=== PATIENT | male | born 1940 | race Caucasian/White ===

== ENCOUNTER 2024-04-22 12:52 | Inpatient (IN) | payer OTHER ==
[~2024-04-22] VITALS: Ht 185.4 cm; Wt 82.6 kg
[~2024-04-22 12:52] MED LIST: ASPI325T6 PO; CARBDRO EACHEYE; FINA5TAB4 PO; FURO1TAB31 PO; LEVO25TA6 PO; LISI-275 PO; MET25T PO; PAR20T PO; PARO10TA93 PO; POTA-220 PO; SIMV40TA18 PO; TAMS0.4C39 PO
--- NOTE | 2024-04-22 13:08 | ED.PDOC ---
HPI Comments 83 year old male JOSE presents to the ED with chief complaint of syncope. Patient reports that he had been in his garage this morning when all of a sudden he had lost consciousness, waking up on the floor next to his car. EMS relays that the patient does not remember how he had fell on the ground, but denies any pain at this time, only feeling generally unwell. Patient states he is currently on ASA at this time. Patient denies any headache, back pain, extremity pain, dizziness, chest pain, or SOB. Time Seen by MD: 13:03 Primary Care Provider: CRISELDA Reviewed Notes: Nurses Notes, Gas [employer] Pet[employer] Operator Notes, Medications, Allergies Allergies: Coded Allergies: NO KNOWN ALLERGIES (Unverified , 08/22/17) Home Meds Active Scripts Potassium Chloride (Klor-Con M20) 20 Meq Tab, 20 MEQ PO BID, #60 TAB Prov:MARJORIE GAUTAM MD 09/04/17 Furosemide (Lasix) 40 Mg Tab, 40 MG PO DAILY, #30 TAB Prov:MARJORIE GAUTAM MD 09/04/17 Metoprolol Tartrate (Lopressor) 25 Mg Tb, 25 MG PO BID, #60 Prov:MARJORIE GAUTAM MD 09/04/17 Lisinopril (Lisinopril) 5 Mg Tab, 5 MG PO DAILY, #30 TAB Prov:MARJORIE GAUTAM MD 09/04/17 Reported Medications Carboxymethylcellulose-Glyceri (Clear Eyes For Dry Eyes) Dry Eyes Panchito, 1 EYES EACHEYE Q4HR, PANCHITO 08/29/17 Finasteride (Finasteride) 5 Mg Tab, 5 MG PO DAILY for 30 Days, MG 08/24/17 Tamsulosin Hcl (Tamsulosin Hcl) 0.4 Mg Cap, 1 CAP PO DAILY, #30 CAP 5 Refills 08/24/17 Aspirin (Aspirin) 325 Mg Tab, 81 MG PO DAILY for 30 Days, MG 08/24/17 Paroxetine (PAXIL TABLET) 20 Mg Tb, 1 TAB PO DAILY, #90 TAB 3 Refills 08/24/17 Simvastatin (Simvastatin) 40 Mg Tab, 40 MG PO DAILY, TAB 08/24/17 Information Source: Patient, Emergency Med Personnel Mode of Arrival: EMS Severity: Moderate Timing: Hours Duration: Since onset Prehospital treatment: None Onset: At Rest Cardiac Risk Factors: Hyperlipidemia, HTN PE Risk Factors: None History of: Aortic Disease Associated Signs and Symptoms: Syncope Past Medical History PAST MEDICAL HISTORY: High Lipids, HTN Surgical History: CABG Family History Family History: No family hx of HTN Social History Smoker: Non-Smoker Alcohol: Denies ETOH Use Drugs: Denies Drug Use Lives In: Home Constitutional: denies: chills, diaphoresis, fatigue, fever, malaise, sweats, weakness, others EENTM: denies: blurred vision, double vision, ear bleeding, ear discharge, ear drainage, ear pain, ear ringing, eye pain, eye redness, hearing loss, mouth pain, mouth swelling, nasal discharge, nose bleeding, nose congestion, nose pain, photophobia, tearing, throat pain, throat swelling, voice changes, others Respiratory: denies: cough, hemoptysis, orthopnea, SOB at rest, shortness of breath, SOB with excertion, stridor, wheezing, others Cardiovascular: reports: syncope; denies: chest pain, dizzy spells, diaphoresis, Dyspnea on exertion, edema, irregular heart beat, left arm pain, lightheadedness, palpitations, PND, others Gastrointestinal: denies: abdomen distended, abdominal pain, blood streaked bowels, constipated, diarrhea, dysphagia, difficulty swallowing, hematemesis, melena, nausea, poor appetite, poor fluid intake, rectal bleeding, rectal pain, vomiting, others Genitourinary: denies: burning, dysuria, flank pain, frequency, hematuria, incontinence, penile discharge, penile sore, pain, testicle pain, testicle swelling, urgency, others Neurological: denies: dizziness, fainting, headache, left sided numbness, left sided weakness, numbness, paresthesia, pre-existing deficit, right sided numbness, right sided weakness, seizure, speech problems, tingling, tremors, weakness, others Musculoskeletal: denies: back pain, gout, joint pain, joint swelling, muscle pain, muscle stiffness, neck pain, others Integumetry: denies: bruises, change in color, change in hair/nails, dryness, laceration, lesions, lumps, rash, wounds, others Allergic/Immunocompromised: denies: Difficulty Healing, Frequent Infections, Hives, Itching, others Hematologic/Lymphatic: denies: anemia, blood clots, easy bleeding, easy bruising, swollen glands, others Endocrine: denies: excessive hunger, excessive sweating, excessive thirst, excessive urination, flushing, intolerance to cold, intolerance to heat, unexplained weight gain, unexplained weight loss, others Psychiatric: denies: anxiety, bipolar disorder, depression, hopeless, panic disorder, schizophrenia, sleepless, suicidal, others All Other Systems: Reviewed and Negative Physical Exam General Appearance: Moderate Distress, Normal HEENT: Normal ENT Inspection, PERRL/EOMI Neck: Full Range of Motion, Non-Tender, Normal, Normal Inspection Respiratory: Chest Non-Tender, No Accessory Muscle Use, No Respiratory Distress, Normal Breath Sounds, Other (Coarse breath sounds) Cardiovascular: Irregular, No Edema, No JVD, No Murmur, No Gallop, Normal Peripheral Pulses Breast Exam: Deferred Gastrointestinal: No Organomegaly, Non Tender, No Pulsatile Mass, Normal Bowel Sounds, Soft Genitalia: Deferred Pelvic: Deferred Rectal: Deferred Extremities: No calf tenderness, Normal capillary refill, Normal inspection, Normal range of motion, Non-tender, No pedal edema Musculoskeletal : Apperance: Normal Neurologic: Alert, 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 Was a procedure done?: No CP Differential Dx Differential Diagnosis: A-fib, A-Flutter, Angina, Anxiety / Panic Attack, Atrial Dysrhythmia, Electrolyte Disorder X-Ray, Labs, Meds, VS Vital Signs Date Time Temp Pulse Resp B/P (MAP) Pulse Ox O2 Delivery O2 Flow Rate FiO2 04/22/24 12:55 57 Patient alert. Possible syncope. Had bypass surgery. Vitals stable. No sign of any trauma. EKG does show flutter. Cardiology consulted. Syncope possibly from the heart. Reviewed his history. Explained to the patient. Continue cardiac monitoring. Time of 1ST Reevaluation: 14:03 Reevaluation 1ST: Unchanged Patient Education/Counseling: Diagnosis, Treatment Family Education/Counseling: No Family Present Additional Information Previous visit documents reviewed: 08/22/17 for cholecystitis The following tests were ordered, and results were reviewed by me: Additional Information was gathered from interviewing the following independent historians: EMS I reviewed and agreed with the following test results read by other providers: I discussed treatment and results with medical personnel. Departure 1 Departure Time of Disposition: 13:12 Impression: Primary Impression: Atrial flutter Qualified Codes: I48.3 - Typical atrial flutter Additional Impression: Near syncope Disposition: ADMITTED INPATIENT Admit to: Med Surg Condition: Guarded Critical Care Note Critical Care Time?: Yes (45 min-critical care time only) Critical care comment: Atrial flutter Stability Stability form required: No Heart Score Heart Score: Heart Score Response (Comments) Value History Highly Suspicious 2 EKG Repolarization Disturb 1 Age >65 2 Risk Factors >3 or Hx ASHD 2 Troponin Normal limit 0 Total 7 I personally scribed for TESS BAI MD ([email or web address]) on 04/22/24 at 13:07. Electronically submitted by Uri Hinds ([email or web address]). TESS BAI MD Apr 22, 2024 13:07
--- NOTE | 2024-04-22 13:09 | ECG ---
[facility] Test Date: 2024-04-22 Test Time: 12:55:56 Pat Name: MICHELE MCKINLEY Department: er Room: 0223T Gender: M [employer] Operator: panda : 1940 Requested By: TESS BAI Order Number: [id number] Reading MD: Guy Sorto Measurements Intervals [place] Rate: 57 P: 0 NH: 0 QRS: 66 QRSD: 108 T: 215 QT: 421 QTc: 410 Interpretive Statements Atrial flutter with predominant 4:1 AV block Anterior infarct, old Repol abnrm, severe global ischemia (LM/MVD) Electronically Signed On 04-26-2024 17:44:42 PST by Guy Sorto Please click the below link to view image of tracing.
[2024-04-22 13:46] LABS: Basophils # (auto) 0 10 ^3/uL (0-0.2); Basophils % (auto) 0.6 % (0.0-2.0); Eosinophils # (auto) 0.1 10 ^3/uL (0-0.8); Eosinophils % (auto) 1.7 % (0.0-7.0); Hematocrit 38.5 % (41.0-53.0); Hemoglobin 13.2 g/dL (13.5-17.5); Lymphocytes # (auto) 0.9 10 ^3/uL (0.4-5.4); Mean Corpuscular Hemoglobin 30.3 pg (28.0-32.0); Mean Corpuscular Hgb Conc. 34.4 g/dL (32.0-36.0); Mean Corpuscular Volume 88.2 fL (80.0-100.0); Monocytes # (auto) 0.5 10 ^3/uL (0-1.3); Neutrophils # (auto) 3.9 10 ^3/uL (1.6-8.6); Neutrophils % (auto) 72.7 % (37.0-80.0); Platelet Count (auto) 138 10^3/uL (140-450); Red Blood Cells 4.37 10^6/uL (4.5-5.90); Red Cell Distribution Width 14.4 % (11.8-14.3); White Blood Cell 5.4 10^3/uL (4.4-10.8)
[2024-04-22 13:47] LABS: Potassium 4.3 mmol/L (3.5-5.1); Sodium 140 mmol/L (136-145)
[2024-04-22 13:48] LABS: Anion Gap 12 (5-15); Carbon Dioxide 21 mmol/L (20-31)
[2024-04-22 13:53] LABS: Blood Urea Nitrogen 17 mg/dL (9-23)
[2024-04-22 14:03] LABS: Chloride 107 mmol/L (98-107); Glucose 119 mg/dL (74-106)
--- NOTE | 2024-04-22 15:17 | DVH ---
EXAM: CT HEAD WITHOUT CONTRAST INDICATION: syncope TECHNIQUE: CT of the head without intravenous contrast. Radiation Dose : 1. Head: CT Dose: CTDI volume is 55.8 mGy. Dose-length product is 894.9 mGy*cm The dose indicators for CT are the volume Computed Tomography (CT) Dose Index (CTDIvol) and the Dose Length Product (DLP), and are measured in units of mGy and mGy-cm, respectively. These indicators are not patient dose, but values generated from the CT scanner acquisition factors. The report includes radiation exposure data for exposures received during this examination. COMPARISON: None FINDINGS: There is no evidence of acute intracranial hemorrhage, extra-axial collection, mass effect, midline s hift, herniation or hydrocephalus. Chronic lacunar infarcts are present in the right internal capsule and right external capsule. The ventricles, sulci and cisterns are age appropriate. The velasquez-white differentiation is intact. Patchy periventricular and subcortical white matter hypoattenuation is nonspecific but may be related to small vessel ischemic disease. The visualized paranasal sinuses and mastoid air cells are clear. The surrounding soft tissues and osseous structures are unremarkable. IMPRESSION: No acute intracranial abnormality. Radiation optimization: All CT scans at this facility use at least one of these dose optimization jaquelin hniques: automated exposure control mA and/or kV adjustment per patient size (includes targeted exam s where dose is matched to clinical indication) or iterative reconstruction.
--- NOTE | 2024-04-22 15:20 | DVH ---
CHEST RADIOGRAPH Indication: sob Technique: Single frontal view of the chest was obtained COMPARISON: None FINDINGS: Lines and Tubes: Median sternotomy Lungs: Diffuse increased interstitial prominence Pleura: No effusion. No pneumothorax. Cardiomediastinal contours: Cardiomegaly Bones: Unremarkable IMPRESSION: Pulmonary vascular congestion.
[2024-04-22 15:36] VITALS: PULSE 54; RESP 16; O2SAT 92
[2024-04-22] MEDS: ONDANSETRON HCL 4 MG/2 ML VIAL IV ONE (16:34)
[2024-04-22] MEDS ORDERED: ONDANSETRON HCL 4 MG/2 ML VIAL IV PRN (17:00)
[2024-04-22] MEDS ORDERED: MORPHINE SULFATE INJ 2 MG/ml SYRG IV PRN ×2 (17:00)
[2024-04-22] MEDS ORDERED: HYDROcodone-ACET 5/325MG TAB PO PRN (17:00)
[2024-04-22] MEDS: SODIUM CHLORIDE 0.9% 1,000 ML IV SCH (17:00)
[2024-04-22] MEDS ORDERED: NITROGLYCERIN 0.4 MG SL TAB SL PRN (17:00)
[2024-04-22] MEDS ORDERED: DOCUSATE SOD 100 MG CAP PO PRN (17:00)
--- NOTE | 2024-04-22 17:06 | DVHHP2 ---
History of Present Illness Reason for Visit: Passing out spell History of Present Illness 83-year-old male with a known history of hypertension, dyslipidemia, BPH, coronary artery disease status post CABG who initially presented to the hospital with a passing out spell. Patient has stated that she was turning of the water in the garage and all of sudden he passed out. Denies any seizure-like activities denies any stroke-like symptoms. Denies any chest pain. Patient was found by his in the garage. Patient denies any previous episode of similar kind. Cardiovascular: CAD, CHF, HTN, [place], syncope Psych: Anxiety Past Surgical History: Cholecystectomy, CABG Family History: None Smoke: No ALCOHOL: none Review of Systems Review of Systems Twelve review of system are negative besides mentioned above. Allergies: Coded Allergies: NO KNOWN ALLERGIES (Unverified , 08/22/17) Medications Current Medications Medications Dose Ordered Sig/Jenny Route Start Time Stop Time Status Last Admin Dose Admin Sodium Chloride 1,000 ml @ 60 mls/hr [id number] IV 04/22/24 17:00 UNV Acetaminophen/ Hydrocodone Bitart 1 tab Q4HP PRN PO 04/22/24 17:00 UNV Ondansetron HCl 4 mg Q4HP PRN IV 04/22/24 17:00 UNV Docusate Sodium 100 mg BIDPRN PRN PO 04/22/24 17:00 UNV Enoxaparin Sodium 40 mg DAILY SC 04/23/24 10:00 UNV Acetaminophen 650 mg Q6HP PRN PO 04/22/24 17:00 UNV Morphine Sulfate 2 mg Q4HPRN PRN IV 04/22/24 17:00 UNV Nitroglycerin 0.4 mg Q5MINP PRN SL 04/22/24 17:00 UNV Morphine Sulfate 2 mg Q30M PRN IV 04/22/24 17:00 UNV Finasteride 5 mg DAILY PO 04/23/24 10:00 UNV Furosemide 40 mg DAILY PO 04/23/24 10:00 UNV Lisinopril 5 mg DAILY PO 04/23/24 10:00 UNV Metoprolol Tartrate 25 mg BID PO 04/22/24 22:00 UNV Paroxetine HCl 20 mg DAILY PO 04/23/24 10:00 UNV Tamsulosin HCl 0.4 mg DAILY PO 04/23/24 10:00 UNV Patient Own Medication 81 mg DAILY PO 04/23/24 10:00 UNV Patient Own Medication 1 eyes Q4HR EACHEYE 04/22/24 18:00 UNV Patient Own Medication 40 mg DAILY PO 04/23/24 10:00 UNV Exam Vital Signs Vital Signs Date Time Temp Pulse Resp B/P (MAP) Pulse Ox O2 Delivery O2 Flow Rate FiO2 04/22/24 15:36 54 16 92 Room Air* 0 21 04/22/24 15:34 97.4 134/62 (86) 97.4 Exam HEENT pupils are reactive Neck is supple CV is S1-S2 regular rate and rhythm Respiratory are clear GI positive bowel sound Extremity no edema 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 Labs/Xrays Labs Test 04/22/24 16:35 04/22/24 13:21 Range/Units White Blood Count 5.4 4.4-10.8 10^3/uL Red Blood Count 4.37 L 4.5-5.90 10^6/uL Hemoglobin 13.2 L 13.5-17.5 g/dL Hematocrit 38.5 L 41.0-53.0 % Mean Corpuscular Volume 88.2 80.0-100.0 fL Mean Corpuscular Hemoglobin 30.3 28.0-32.0 pg Mean Corpuscular Hemoglobin Concent 34.4 32.0-36.0 g/dL Red Cell Distribution Width 14.4 H 11.8-14.3 % Platelet Count 138 L 140-450 10^3/uL Mean Platelet Volume 9.0 6.9-10.8 fL Neutrophils (%) (Auto) 72.7 37.0-80.0 % Lymphocytes (%) (Auto) 16.0 10.0-50.0 % Monocytes (%) (Auto) 9.0 0.0-12.0 % Eosinophils (%) (Auto) 1.7 0.0-7.0 % Basophils (%) (Auto) 0.6 0.0-2.0 % Neutrophils # (Auto) 3.9 1.6-8.6 10 ^3/uL Lymphocytes # (Auto) 0.9 0.4-5.4 10 ^3/uL Monocytes # (Auto) 0.5 0-1.3 10 ^3/uL Eosinophils # (Auto) 0.1 0-0.8 10 ^3/uL Basophils # (Auto) 0 0-0.2 10 ^3/uL Nucleated Red Blood Cells 0.0 % Sodium Level 140 136-145 mmol/L Potassium Level 4.3 3.5-5.1 mmol/L Chloride Level 107 98-107 mmol/L Carbon Dioxide Level 21 20-31 mmol/L Anion Gap 12 5-15 Blood Urea Nitrogen 17 9-23 mg/dL Creatinine 1.21 0.700-1.30 mg/dL Glomerular Filtration Rate Calc 59 >90 mL/min BUN/Creatinine Ratio 14.0 10.0-20.0 Serum Glucose 119 H 74-106 mg/dL Calcium Level 9.0 8.7-10.4 mg/dL Assessment/Plan Assessment/Plan 83-year-old male with a known history of hypertension, dyslipidemia, coronary artery disease status post three-vessel CABG, BPH, anxiety disorder initially presented to the hospital with a passing out spell found to have 1. Syncope rule out cardiac arrhythmia 2. Coronary artery disease status post three-vessel CABG 3. Hypertension 4. Dyslipidemia 5. BPH 6. Anxiety disorder -tele observation, 2D echo, cardiology consultation -Holter monitoring/event monitoring upon discharge Plan discussed with: Patient My Orders Orders - ASHOK DIALLO MD Procedure Category Date Status Time Admit ADMIT 04/22/24 Transmitted 16:51 Code Status CODE 04/22/24 Transmitted 16:51 2 Gm Sodium Diet DIET 04/22/24 Transmitted Dinner Sodium Chloride 0.9% PHA 04/22/24 In Process 17:00 Hydrocodone-Acet PHA 04/22/24 In Process 5/325mg Tab (Calera 17:00 Ondansetron Hcl PHA 04/22/24 In Process (Zofran) 17:00 Docusate Sodium PHA 04/22/24 In Process Capsule (Colace 17:00 Enoxaparin Sodium PHA 04/23/24 Logged (Lovenox) 10:00 Complete Blood Count LAB 04/23/24 Verified 04:00 Comprehensive LAB 04/23/24 Verified Metabolic Panel 04:00 Pt Request For Service PT 04/22/24 Logged 16:51 Echo 2d Mode Cardiac US 04/22/24 Logged DOP 16:51 Condition: Fair KITA 04/22/24 In Process 16:51 Acetaminophen Tablet PHA 04/22/24 In Process (Tylenol Tablet) 17:00 Morphine Sulfate PHA 04/22/24 In Process Injection 17:00 Nitroglycerin PHA 04/22/24 In Process Sublingual (Ntrostat 17:00 Morphine Sulfate PHA 04/22/24 In Process Injection 17:00 Stat Ekg For Chest KITA 04/22/24 In Process Pain 16:51 Notify Md Of Changes KITA 04/22/24 In Process From Base 16:51 Airfield Operations Specialist For KITA 04/22/24 In Process 24 Hours 16:51 Emergency Dysrhythmia KITA 04/22/24 In Process Protocol 16:51 Rhythm Strips Once KITA 04/22/24 In Process Every Shift 16:51 Oxygen By Nasal RT 04/22/24 Transmitted Cannula 16:51 * Cardiology Consult CONS 04/22/24 Transmitted 16:51 Finasteride Tablet PHA 04/23/24 Logged (Proscar Tablet) 10:00 Furosemide Tablet PHA 04/23/24 Logged (Lasix Tablet) 10:00 Lisinopril Tablet PHA 04/23/24 Logged (Zestril Tablet) 10:00 Metoprolol Tartrate PHA 04/22/24 Logged Tablet (Lopressor Ta 22:00 Paroxetine Tablet PHA 04/23/24 Logged (Paxil Tablet) 10:00 Tamsulosin PHA 04/23/24 Logged Hydrochloride (Flomax) 10:00 (Nf) Aspirin PHA 04/23/24 Logged 10:00 (NF) PHA 04/22/24 Logged Carboxymethylcellulose-Glyceri 18:00 (Nf) Simvastatin PHA 04/23/24 Logged 10:00 Date of Service: Apr 22, 2024 Billing Provider: ASHOK DIALLO MD Common Visit Codes: NOT BILLABLE ASHOK DIALLO MD Apr 22, 2024 17:06
[2024-04-22] MEDS ORDERED: CARBOXYMETHYLCELLULOSE GLYCERI EACHEYE SCH (18:00)
[2024-04-22 20:10] VITALS: PULSE 77; RESP 12; O2SAT 91
[2024-04-22] MEDS ORDERED: METOPROLOL TARTRATE 25 MG TAB PO SCH (22:00)
[2024-04-22] MEDS: METOPROLOL TARTRATE 25 MG TAB PO SCH (22:27)
[2024-04-22] MEDS: ATORVASTATIN 20 MG TAB PO SCH (22:28)
[2024-04-22] MEDS: CARBOXYMETHYLCELLULOSE GLYCERI EACHEYE SCH (22:31)
[2024-04-22 23:48] VITALS: BP 122/53; PULSE 58; TEMP 97.8; O2SAT 92
[2024-04-23] VITALS (10 sets, daily range): BP systolic 79–135; BP diastolic 37–75; PULSE 35–58; RESP 16–20; TEMP 97.7–98.5; O2SAT 90–93
[2024-04-23] MEDS ORDERED: ASPI1TAB20 PO (02:37)
[2024-04-23 06:08] LABS: Basophils # (auto) 0 10 ^3/uL (0-0.2); Basophils % (auto) 0.4 % (0.0-2.0); Eosinophils # (auto) 0.1 10 ^3/uL (0-0.8); Eosinophils % (auto) 0.7 % (0.0-7.0); Hematocrit 36.3 % (41.0-53.0); Hemoglobin 12.4 g/dL (13.5-17.5); Lymphocytes # (auto) 0.9 10 ^3/uL (0.4-5.4); Lymphocytes % (auto) 10.6 % (10.0-50.0); Mean Corpuscular Hemoglobin 29.9 pg (28.0-32.0); Monocytes # (auto) 0.8 10 ^3/uL (0-1.3); Neutrophils # (auto) 6.8 10 ^3/uL (1.6-8.6); Neutrophils % (auto) 79.3 % (37.0-80.0); Platelet Count (auto) 159 10^3/uL (140-450); Red Blood Cells 4.13 10^6/uL (4.5-5.90); Red Cell Distribution Width 14.5 % (11.8-14.3); White Blood Cell 8.6 10^3/uL (4.4-10.8)
[2024-04-23 06:32] LABS: Alanine Aminotransferase 10 U/L (7-40); Albumin 3.7 g/dL (3.2-4.8); Alkaline Phosphatase 63 U/L (46-116); Anion Gap 6 (5-15); Aspartate Aminotransferase 18 U/L (13-40); BUN/Creatinine Ratio 13.1 (10.0-20.0); Bilirubin, Total 0.7 mg/dL (0.2-1.0); Blood Urea Nitrogen 16 mg/dL (9-23); Calcium 9.1 mg/dL (8.7-10.4); Carbon Dioxide 25 mmol/L (20-31); Glucose 106 mg/dL (74-106); Potassium 4.5 mmol/L (3.5-5.1); Sodium 141 mmol/L (136-145); Total Protein 5.9 g/dL (5.7-8.2)
[2024-04-23 06:34] LABS: Chloride 110 mmol/L (98-107)
[2024-04-23] MEDS ORDERED: PATIENTS OWN MEDICATION (Aspirin 81 MG) PO SCH (10:00)
[2024-04-23] MEDS: LISINOPRIL 5 MG TAB PO SCH (10:00)
[2024-04-23] MEDS: FUROSEMIDE 40 MG TAB PO SCH (10:00)
[2024-04-23] MEDS ORDERED: ENOXAPARIN SOD 40 MG/0.4 ML SYRINGE SC SCH (10:00)
[2024-04-23] MEDS ORDERED: PARoxetine 20 MG TAB PO SCH (10:00)
[2024-04-23] MEDS ORDERED: PATIENTS OWN MEDICATION (Simvastatin 40 MG) PO SCH (10:00)
[2024-04-23] MEDS ORDERED: FINASTERIDE 5 MG TAB PO SCH (10:00)
[2024-04-23] MEDS ORDERED: FUROSEMIDE 40 MG TAB PO SCH (10:00)
[2024-04-23] MEDS ORDERED: TAMSULOSIN HYDROCHLORIDE 0.4 MG CAP PO SCH (10:00)
[2024-04-23] MEDS ORDERED: LISINOPRIL 5 MG TAB PO SCH (10:00)
[2024-04-23] MEDS: ASPirin-EC 81 mg tab PO SCH (10:05)
[2024-04-23] MEDS: ENOXAPARIN SOD 40 MG/0.4 ML SYRINGE SC SCH (10:05)
[2024-04-23] MEDS: TAMSULOSIN HYDROCHLORIDE 0.4 MG CAP PO SCH (10:06)
[2024-04-23 10:09] LABS: Urine Bacteria None Seen /hpf (None Seen)
[2024-04-23] MEDS: PARoxetine 20 MG TAB PO SCH (10:15)
[2024-04-23] MEDS: FINASTERIDE 5 MG TAB PO SCH (10:17)
[2024-04-23 10:21] LABS: Urine Blood Negative /uL (Negative); Urine Clarity Clear (Clear); Urine Color Yellow (Yellow); Urine Protein, UAD TRACE (Negative); Urine Specific Gravity 1.022 (1.001-1.035); Urine Squamous Epithelial Cell FEW /hpf (<5); Urine Urobilinogen Normal (Negative); Urine WBC 1 /HPF (0-3); Urine pH 6.5 (5.0-9.0)
--- NOTE | 2024-04-23 12:13 | DVHINCON2 ---
Date of service: Apr 23, 2024 History of Present Illness History of Present Illness 83-year-old male with a known history of hypertension, dyslipidemia, BPH, coronary artery disease status post CABG who initially presented to the hospital with a passing out spell. Patient has stated that she was turning of the water in the garage and all of sudden he passed out. Denies any seizure-like activities denies any stroke-like symptoms. Denies any chest pain. Patient was found by his in the garage. Patient denies any previous episode of similar kind. Cardiovascular: CAD, CHF, HTN, [place], syncope Psych: Anxiety Past Surgical History: Cholecystectomy, CABG Family History: None Smoke: No ALCOHOL: none Past Medical History reviewed Family History: Cardiovascular disease G8 MOTHER Allergies: Coded Allergies: NO KNOWN ALLERGIES (Unverified , 08/22/17) Home Meds Active Scripts Potassium Chloride (Klor-Con M20) 20 Meq Tab, 20 MEQ PO BID, #60 TAB Prov:MARJORIE GAUTAM MD 09/04/17 Furosemide (Lasix) 40 Mg Tab, 40 MG PO DAILY, #30 TAB Prov:MARJORIE GAUTAM MD 09/04/17 Metoprolol Tartrate (Lopressor) 25 Mg Tb, 25 MG PO BID, #60 Prov:MARJORIE GAUTAM MD 09/04/17 Lisinopril (Lisinopril) 5 Mg Tab, 5 MG PO DAILY, #30 TAB Prov:MARJORIE GAUTAM MD 09/04/17 Reported Medications Aspirin (Aspir-81) 81 Mg Tab, 1 TAB PO DAILY, #30 TAB 5 Refills 04/23/24 Carboxymethylcellulose-Glyceri (Clear Eyes For Dry Eyes) Dry Eyes Panchito, 1 EYES EACHEYE Q4HR, PANCHITO 08/29/17 Finasteride (Finasteride) 5 Mg Tab, 5 MG PO DAILY for 30 Days, MG 08/24/17 Tamsulosin Hcl (Tamsulosin Hcl) 0.4 Mg Cap, 1 CAP PO DAILY, #30 CAP 5 Refills 08/24/17 Paroxetine (PAXIL TABLET) 20 Mg Tb, 1 TAB PO DAILY, #90 TAB 3 Refills 08/24/17 Simvastatin (Simvastatin) 40 Mg Tab, 40 MG PO DAILY, TAB 08/24/17 Discontinued Reported Medications Aspirin (Aspirin) 325 Mg Tab, 81 MG PO DAILY for 30 Days, MG 08/24/17 Current Medications Current Medications Medications (Trade) Dose Ordered Sig/Jenny Route PRN Reason Start Time Stop Time Status Last Admin Sodium Chloride 1,000 ml @ 60 mls/hr [id number] IV 04/22/24 17:00 04/23/24 10:03 Acetaminophen/ Hydrocodone Bitart ([place] 5/325MG Tab) 1 tab Q4HP PRN PO MODERATE PAIN (4-6 PAIN SCALE) 04/22/24 17:00 Ondansetron HCl (Zofran) 4 mg Q4HP PRN IV NAUSEA / VOMITING 04/22/24 17:00 Docusate Sodium (Colace Capsule) 100 mg BIDPRN PRN PO FOR CONSTIPATION 04/22/24 17:00 Enoxaparin Sodium (Lovenox) 40 mg DAILY SC 04/23/24 10:00 04/22/24 17:05 DC Acetaminophen (Tylenol Tablet) 650 mg Q6HP PRN PO PAIN SCALE 1-3 OR TEMP>100.4 04/22/24 17:00 Morphine Sulfate 2 mg Q4HPRN PRN IV SEVERE PAIN (7-10 PAIN SCALE) 04/22/24 17:00 Nitroglycerin (Ntrostat Sublingual) 0.4 mg Q5MINP PRN SL FOR CHEST PAIN 04/22/24 17:00 Morphine Sulfate 2 mg Q30M PRN IV FOR CHEST PAIN 04/22/24 17:00 Finasteride (Proscar Tablet) 5 mg DAILY PO 04/23/24 10:00 04/22/24 17:05 DC Furosemide (Lasix Tablet) 40 mg DAILY PO 04/23/24 10:00 04/22/24 17:05 DC Lisinopril (Zestril Tablet) 5 mg DAILY PO 04/23/24 10:00 04/22/24 17:05 DC Metoprolol Tartrate (Lopressor Tablet) 25 mg BID PO 04/22/24 22:00 04/22/24 17:05 DC Paroxetine HCl (Paxil Tablet) 20 mg DAILY PO 04/23/24 10:00 04/22/24 17:05 DC Tamsulosin HCl (Flomax) 0.4 mg DAILY PO 04/23/24 10:00 04/22/24 17:05 DC Patient Own Medication 81 mg DAILY PO 04/23/24 10:00 04/22/24 17:05 DC Patient Own Medication 1 eyes Q4HR EACHEYE 04/22/24 18:00 04/22/24 17:05 DC Patient Own Medication 40 mg DAILY PO 04/23/24 10:00 04/22/24 17:05 DC Enoxaparin Sodium (Lovenox) 40 mg DAILY SC 04/23/24 10:00 04/23/24 10:05 Finasteride (Proscar Tablet) 5 mg DAILY PO 04/23/24 10:00 04/23/24 10:17 Furosemide (Lasix Tablet) 40 mg DAILY PO 04/23/24 10:00 Lisinopril (Zestril Tablet) 5 mg DAILY PO 04/23/24 10:00 Metoprolol Tartrate (Lopressor Tablet) 25 mg BID PO 04/22/24 22:00 04/22/24 22:27 Paroxetine HCl (Paxil Tablet) 20 mg DAILY PO 04/23/24 10:00 04/23/24 10:15 Tamsulosin HCl (Flomax) 0.4 mg DAILY PO 04/23/24 10:00 04/23/24 10:06 Aspirin (Ecotrin Enteric Coated Tablet) 81 mg DAILY PO 04/23/24 10:00 04/23/24 10:05 Patient Own Medication 1 eyes Q4HR EACHEYE 04/22/24 22:00 04/23/24 10:17 Atorvastatin Calcium (Lipitor) 20 mg HS PO 04/22/24 22:00 04/22/24 22:28 Review of Systems 10 pt ros otherwise negative Vital Signs Vital Signs Date Time Temp Pulse Resp B/P (MAP) Pulse Ox O2 Delivery O2 Flow Rate FiO2 04/23/24 10:00 40 106/39 04/23/24 08:13 Room Air* 0 21 04/23/24 05:00 97.8 18 90 97.8 Physical Exam nad s1 s2 rrr ctab soft nt/nd no edema Labs/Diagnostic Data Labs Test 04/23/24 10:07 04/23/24 05:38 04/22/24 16:35 Range/Units Urine Color Yellow Yellow Urine Clarity Clear Clear Urine pH 6.5 5.0-9.0 Urine Specific [place] 1.022 1.001-1.035 Urine Protein Trace H Negative Urine Ketones Negative Negative Urine Blood Negative Negative /uL Urine Nitrite Negative Negative Urine Bilirubin Negative Negative Urine Urobilinogen Normal Negative mg/dL Urine Leukocyte Esterase Negative Negative /uL Urine RBC 4 0 - 3 /hpf Urine Microscopic WBC 1 0-3 /HPF Urine Squamous Epithelial Cells Few <5 /hpf Urine Bacteria None seen None Seen /hpf Urine Glucose Normal Normal mg/dL White Blood Count 8.6 # 4.4-10.8 10^3/uL Red Blood Count 4.13 L 4.5-5.90 10^6/uL Hemoglobin 12.4 L 13.5-17.5 g/dL Hematocrit 36.3 L 41.0-53.0 % Mean Corpuscular Volume 88.0 80.0-100.0 fL Mean Corpuscular Hemoglobin 29.9 28.0-32.0 pg Mean Corpuscular Hemoglobin Concent 34.0 32.0-36.0 g/dL Red Cell Distribution Width 14.5 H 11.8-14.3 % Platelet Count 159 140-450 10^3/uL Mean Platelet Volume 8.8 6.9-10.8 fL Neutrophils (%) (Auto) 79.3 37.0-80.0 % Lymphocytes (%) (Auto) 10.6 10.0-50.0 % Monocytes (%) (Auto) 9.0 0.0-12.0 % Eosinophils (%) (Auto) 0.7 0.0-7.0 % Basophils (%) (Auto) 0.4 0.0-2.0 % Neutrophils # (Auto) 6.8 1.6-8.6 10 ^3/uL Lymphocytes # (Auto) 0.9 0.4-5.4 10 ^3/uL Monocytes # (Auto) 0.8 0-1.3 10 ^3/uL Eosinophils # (Auto) 0.1 0-0.8 10 ^3/uL Basophils # (Auto) 0 0-0.2 10 ^3/uL Nucleated Red Blood Cells 0.0 % Sodium Level 141 136-145 mmol/L Potassium Level 4.5 3.5-5.1 mmol/L Chloride Level 110 H 98-107 mmol/L Carbon Dioxide Level 25 20-31 mmol/L Anion Gap 6 5-15 Blood Urea Nitrogen 16 9-23 mg/dL Creatinine 1.22 0.700-1.30 mg/dL Glomerular Filtration Rate Calc 58 >90 mL/min BUN/Creatinine Ratio 13.1 10.0-20.0 Serum Glucose 106 74-106 mg/dL Calcium Level 9.1 8.7-10.4 mg/dL Total Bilirubin 0.7 0.2-1.0 mg/dL Aspartate Amino Transferase (AST) 18 13-40 U/L Alanine Aminotransferase (ALT) 10 7-40 U/L Alkaline Phosphatase 63 46-116 U/L Total Protein 5.9 5.7-8.2 g/dL Albumin 3.7 3.2-4.8 g/dL Troponin I High Sensitivity 131 *H </=54 ng/L Assessment 4:1 atrial flutter hx of cad /cad elevated troponin syncope Plan/Recommendation EP eval for possible PPM dccv very risky gien low HR at this time hold anticoag for now, for possible procedure, check echo cont observation , cont tele Plan discussed with: Patient HOODMANJINDER MD Apr 23, 2024 12:12
--- NOTE | 2024-04-23 12:19 | CONS ---
Home Medication Review Med Rec on Admission: Scheduled Aspirin (Aspir-81), 1 TAB PO DAILY, (Reported) Carboxymethylcellulose-Glyceri (Clear Eyes For Dry Eyes), 1 EYES EACHEYE Q4HR, (Reported) Finasteride (Finasteride), 5 MG PO DAILY, (Reported) Furosemide (Lasix), 40 MG PO DAILY Levothyroxine Sodium (Levothyroxine Sodium), 1 TAB PO QAM, (Reported) Lisinopril (Lisinopril), 5 MG PO DAILY Metoprolol Tartrate (Lopressor), 25 MG PO BID Paroxetine Hydrochloride (Paroxetine Hydrochloride), 1 TAB PO DAILY, (Reported) Potassium Chloride (Klor-Con M20), 20 MEQ PO BID Simvastatin (Simvastatin), 40 MG PO DAILY, (Reported) Tamsulosin Hcl (Tamsulosin Hcl), 1 CAP PO DAILY, (Reported) Discontinued Medications Aspirin (Aspirin), 81 MG PO DAILY, (Reported) Paroxetine (Paxil Tablet), 1 TAB PO DAILY, (Reported) Discontinued Reason: Prescription changed Med Rec on Discharge: Electronic Scripts Active Scripts Potassium Chloride (Klor-Con M20) 20 Meq Tab, 20 MEQ PO BID, #60 TAB Prov:MARJORIE GAUTAM MD 09/04/17 Furosemide (Lasix) 40 Mg Tab, 40 MG PO DAILY, #30 TAB Prov:MARJORIE GAUTAM MD 09/04/17 Metoprolol Tartrate (Lopressor) 25 Mg Tb, 25 MG PO BID, #60 Prov:MARJORIE GAUTAM MD 09/04/17 Lisinopril (Lisinopril) 5 Mg Tab, 5 MG PO DAILY, #30 TAB Prov:MARJORIE GAUTAM MD 09/04/17 Reported Medications Levothyroxine Sodium (Levothyroxine Sodium) 25 Mcg Tab, 1 TAB PO QAM for 90 Days, #90 3 Paroxetine Hydrochloride (Paroxetine Hydrochloride) 10 Mg Tab, 1 TAB PO DAILY for 90 Days, #90 325 Aspirin (Aspir-81) 81 Mg Tab, 1 TAB PO DAILY, #30 TAB 5 Refills /25 Carboxymethylcellulose-Glyceri (Clear Eyes For Dry Eyes) Dry Eyes Claudia, 1 EYES EACHEYE Q4HR, CLAUDIA 7/11/18 Finasteride (Finasteride) 5 Mg Tab, 5 MG PO DAILY for 30 Days, MG 08/24/17 Tamsulosin Hcl (Tamsulosin Hcl) 0.4 Mg Cap, 1 CAP PO DAILY, #30 CAP 5 Refills 08/24/17 Simvastatin (Simvastatin) 40 Mg Tab, 40 MG PO DAILY, TAB 08/24/17 Discontinued Reported Medications Aspirin (Aspirin) 325 Mg Tab, 81 MG PO DAILY for 30 Days, MG 08/24/17 Paroxetine (PAXIL TABLET) 20 Mg Tb, 1 TAB PO DAILY, #90 TAB 3 Refills 08/24/17 Notes Notes: Edited: Paroxetine hydrochloride 10 mg tab. Take 1 tablet by mouth once daily. Added: Levothyroxine sodium 25 mcg tab. Take 1 tablet by mouth in the morning. Discharge Data Labs: Laboratory Results Test 04/23/24 10:07 04/23/24 05:38 04/22/24 16:35 Urine Color Yellow (Yellow) Urine Clarity Clear (Clear) Urine pH 6.5 (5.0-9.0) Urine Specific [place] 1.022 (1.001-1.035) Urine Protein Trace (Negative) Urine Ketones Negative (Negative) Urine Blood Negative /uL (Negative) Urine Nitrite Negative (Negative) Urine Bilirubin Negative (Negative) Urine Urobilinogen Normal mg/dL (Negative) Urine Leukocyte Esterase Negative /uL (Negative) Urine RBC 4 /hpf (0 - 3) Urine Microscopic WBC 1 /HPF (0-3) Urine Squamous Epithelial Cells Few /hpf (<5) Urine Bacteria None seen /hpf (None Seen) Urine Glucose Normal mg/dL (Normal) White Blood Count 8.6 10^3/uL (4.4-10.8) Red Blood Count 4.13 10^6/uL (4.5-5.90) Hemoglobin 12.4 g/dL (13.5-17.5) Hematocrit 36.3 % (41.0-53.0) Mean Corpuscular Volume 88.0 fL (80.0-100.0) Mean Corpuscular Hemoglobin 29.9 pg (28.0-32.0) Mean Corpuscular Hemoglobin Concent 34.0 g/dL (32.0-36.0) Red Cell Distribution Width 14.5 % (11.8-14.3) Platelet Count 159 10^3/uL (140-450) Mean Platelet Volume 8.8 fL (6.9-10.8) Neutrophils (%) (Auto) 79.3 % (37.0-80.0) Lymphocytes (%) (Auto) 10.6 % (10.0-50.0) Monocytes (%) (Auto) 9.0 % (0.0-12.0) Eosinophils (%) (Auto) 0.7 % (0.0-7.0) Basophils (%) (Auto) 0.4 % (0.0-2.0) Neutrophils # (Auto) 6.8 10 ^3/uL (1.6-8.6) Lymphocytes # (Auto) 0.9 10 ^3/uL (0.4-5.4) Monocytes # (Auto) 0.8 10 ^3/uL (0-1.3) Eosinophils # (Auto) 0.1 10 ^3/uL (0-0.8) Basophils # (Auto) 0 10 ^3/uL (0-0.2) Nucleated Red Blood Cells 0.0 % Sodium Level 141 mmol/L (136-145) Potassium Level 4.5 mmol/L (3.5-5.1) Chloride Level 110 mmol/L (98-107) Carbon Dioxide Level 25 mmol/L (20-31) Anion Gap 6 (5-15) Blood Urea Nitrogen 16 mg/dL (9-23) Creatinine 1.22 mg/dL (0.700-1.30) Glomerular Filtration Rate Calc 58 mL/min (>90) BUN/Creatinine Ratio 13.1 (10.0-20.0) Serum Glucose 106 mg/dL (74-106) Calcium Level 9.1 mg/dL (8.7-10.4) Total Bilirubin 0.7 mg/dL (0.2-1.0) Aspartate Amino Transferase (AST) 18 U/L (13-40) Alanine Aminotransferase (ALT) 10 U/L (7-40) Alkaline Phosphatase 63 U/L (46-116) Total Protein 5.9 g/dL (5.7-8.2) Albumin 3.7 g/dL (3.2-4.8) Troponin I High Sensitivity 131 ng/L (</=54) Other Laboratory Tests 04/23/24 05:38 [facility] Apr 23, 2024 12:19
--- NOTE | 2024-04-23 15:07 | DVHPN2 ---
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 Medications Current Medications Medications Dose Ordered Sig/Jenny Route Start Time Stop Time Status Last Admin Dose Admin Sodium Chloride 1,000 ml @ 60 mls/hr [id number] IV 04/22/24 17:00 04/23/24 10:03 60 MLS/HR Acetaminophen/ Hydrocodone Bitart 1 tab Q4HP PRN PO 04/22/24 17:00 Ondansetron HCl 4 mg Q4HP PRN IV 04/22/24 17:00 Docusate Sodium 100 mg BIDPRN PRN PO 04/22/24 17:00 Acetaminophen 650 mg Q6HP PRN PO 04/22/24 17:00 Morphine Sulfate 2 mg Q4HPRN PRN IV 04/22/24 17:00 Nitroglycerin 0.4 mg Q5MINP PRN SL 04/22/24 17:00 Morphine Sulfate 2 mg Q30M PRN IV 04/22/24 17:00 Enoxaparin Sodium 40 mg DAILY SC 04/23/24 10:00 04/23/24 10:05 40 MG Finasteride 5 mg DAILY PO 04/23/24 10:00 04/23/24 10:17 5 MG Furosemide 40 mg DAILY PO 04/23/24 10:00 Lisinopril 5 mg DAILY PO 04/23/24 10:00 Metoprolol Tartrate 25 mg BID PO 04/22/24 22:00 04/22/24 22:27 25 MG Paroxetine HCl 20 mg DAILY PO 04/23/24 10:00 04/23/24 10:15 20 MG Tamsulosin HCl 0.4 mg DAILY PO 04/23/24 10:00 04/23/24 10:06 0.4 MG Aspirin 81 mg DAILY PO 04/23/24 10:00 04/23/24 10:05 81 MG Patient Own Medication 1 eyes Q4HR EACHEYE 04/22/24 22:00 04/23/24 13:38 1 EYES Atorvastatin Calcium 20 mg HS PO 04/22/24 22:00 04/22/24 22:28 20 MG Laboratory Results Laboratory Tests 04/23/24 05:38 Chemistry Test 04/23/24 05:38 Albumin 3.7 g/dL (3.2-4.8) Calcium Level 9.1 mg/dL (8.7-10.4) Total Protein 5.9 g/dL (5.7-8.2) LFT Test 04/23/24 05:38 Alanine Aminotransferase (ALT) 10 U/L (7-40) Alkaline Phosphatase 63 U/L (46-116) Aspartate Amino Transferase (AST) 18 U/L (13-40) Total Bilirubin 0.7 mg/dL (0.2-1.0) Urinalysis Test 04/23/24 10:07 Urine Color Yellow (Yellow) Urine Clarity Clear (Clear) Urine pH 6.5 (5.0-9.0) Urine Specific [place] 1.022 (1.001-1.035) Urine Protein Trace (Negative) H Urine Ketones Negative (Negative) Urine Blood Negative /uL (Negative) Urine Nitrite Negative (Negative) Urine Bilirubin Negative (Negative) Urine Urobilinogen Normal mg/dL (Negative) Urine Leukocyte Esterase Negative /uL (Negative) Urine RBC 4 /hpf (0 - 3) Urine Microscopic WBC 1 /HPF (0-3) Urine Squamous Epithelial Cells Few /hpf (<5) Urine Bacteria None seen /hpf (None Seen) Urine Glucose Normal mg/dL (Normal) Assessment/Plan Assessment/Plan 83-year-old male with a known history of hypertension, dyslipidemia, coronary artery disease status post three-vessel CABG, BPH, anxiety disorder initially presented to the hospital with a passing out spell found to have 1. Syncope suspect secondary to atrial flutter 2. Coronary artery disease status post three-vessel CABG 3. Atrial flutter 4. Dyslipidemia 5. BPH 6. Anxiety disorder -tele observation, 2D echo, cardiology consultation appreciated -electrophysiology consultation for permanent pacemaker implantation evaluation. -Holter monitoring/event monitoring upon discharge Plan discussed with: Patient, Spouse My Orders Orders - ASHOK DIALLO MD Procedure Category Date Status Time Admit ADMIT 04/22/24 Transmitted 16:51 Code Status CODE 04/22/24 Transmitted 16:51 2 Gm Sodium Diet DIET 04/22/24 Transmitted Dinner Sodium Chloride 0.9% PHA 04/22/24 In Process 17:00 Hydrocodone-Acet PHA 04/22/24 In Process 5/325mg Tab (Davis 17:00 Ondansetron Hcl PHA 04/22/24 In Process (Zofran) 17:00 Docusate Sodium PHA 04/22/24 In Process Capsule (Colace 17:00 Pt Request For Service PT 04/22/24 Logged 16:51 Condition: Fair KITA 04/22/24 In Process 16:51 Acetaminophen Tablet PHA 04/22/24 In Process (Tylenol Tablet) 17:00 Morphine Sulfate PHA 04/22/24 In Process Injection 17:00 Nitroglycerin PHA 04/22/24 In Process Sublingual (Ntrostat 17:00 Morphine Sulfate PHA 04/22/24 In Process Injection 17:00 Stat Ekg For Chest KITA 04/22/24 In Process Pain 16:51 Notify Md Of Changes KITA 04/22/24 In Process From Base 16:51 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 KITA 04/22/24 In Process 24 Hours 16:51 Emergency Dysrhythmia KITA 04/22/24 In Process Protocol 16:51 Rhythm Strips Once KITA 04/22/24 In Process Every Shift 16:51 Oxygen By Nasal RT 04/22/24 Transmitted Cannula 16:51 * Cardiology Consult CONS 04/22/24 Transmitted 16:51 Enoxaparin Sodium PHA 04/23/24 In Process (Lovenox) 10:00 Finasteride Tablet PHA 04/23/24 In Process (Proscar Tablet) 10:00 Furosemide Tablet PHA 04/23/24 In Process (Lasix Tablet) 10:00 Lisinopril Tablet PHA 04/23/24 In Process (Zestril Tablet) 10:00 Metoprolol Tartrate PHA 04/22/24 In Process Tablet (Lopressor Ta 22:00 Paroxetine Tablet PHA 04/23/24 In Process (Paxil Tablet) 10:00 Tamsulosin PHA 04/23/24 In Process Hydrochloride (Flomax) 10:00 (NF) PHA 04/22/24 In Process Carboxymethylcellulose-Glyceri 22:00 Aspirin Enteric PHA 04/23/24 In Process Coated Tablet 10:00 Atorvastatin (Lipitor) PHA 04/22/24 In Process 22:00 Orthostatic Vital ORDERS 04/23/24 Transmitted Signs 11:40 Date of Service: Apr 23, 2024 Billing Provider: ASHOK DIALLO MD Common Visit Codes: NOT BILLABLE ASHOK DIALLO MD Apr 23, 2024 15:07
--- NOTE | 2024-04-23 17:16 | DVHSR ---
APPROVED REPORT EXAM: Two-dimensional and M-mode echocardiogram with Doppler and color Doppler. Blood Pressure: 108/75 mmHg INDICATION Syncope Surgery/Intervention CABG: RISK FACTORS Height: 6'1", Weight: 182 DIMENSIONS LVDd6.3 (3.8-5.7cm)LA (2D)5.3 (1.9-4.0cm)Aortic Root (2.0-3.7cm) LVDs4.7 (2.5-4.0cm)LA (MM) (1.9-4.0cm)Aortic Cusp Exc (1.5-2.0cm) EF (%) 50.0 (55-70%)Rt. Atrium5.2 (1.9-4.0cm)Asc. Aorta cm IVSd (0.7-1.1cm)RV (D)4.1 (1.8-2.4cm) Mitral Valve MitralMitral Stenosis E wave1.11m/sMV Mean GR.mmHg E/A ratio0.02D MVAcm2 Aortic Valve Aortic ValveAortic Stenosis V11.14m/Miguel Mean GR.5mmHg V21.52m/Miguel Peak GR.9mmHg LVOT Diameter2.0 (1.8-2.4cm)Doppler AVA2.36cm2 AI P 1/2 Fvkm981.48ms Tricuspid Valve TR Velocity3.39m/s [id number] Other Information Quality : Technically LimitedRhythm : Technically limited study due to body habitus. Conclusion lvef 35 % diffuse hypokinesis of LV postop septum RV enlarged mild PFO is suspected biatrial enlargement mild tricuspid regurg mild mitral regurg
[2024-04-23 19:36] LABS: INR 1.09 (0.9-1.15); Prothrombin Time 11.5 sec (9.3-11.8)
[2024-04-24] VITALS (8 sets, daily range): BP systolic 0–161; BP diastolic 50–73; PULSE 35–82; RESP 16–20; TEMP 97.8–99.4; O2SAT 88–95
--- NOTE | 2024-04-24 13:59 | DVHPN2 ---
Progress Note Date Seen: Apr 24, 2024 Medical Necessity Reason Pt with a Central, PICC or Fol: No Subjective Patient reports: Feels better Objective vital signs Vital Sign Date Time Temp Pulse Resp B/P (MAP) Pulse Ox O2 Delivery O2 Flow Rate FiO2 04/24/24 10:00 47 121/53 04/24/24 09:10 18 04/24/24 08:01 Room Air* 0 21 04/24/24 04:44 98.1 94 98.1 Total Intake and Output 04/23/24 04/23/24 04/24/24 15:00 23:00 07:00 Intake Total 780 ml 100 ml Output Total 250 ml Balance 780 ml -150 ml medications Current Medications Medications Dose Ordered Sig/Jenny Route Start Time Stop Time Status Last Admin Dose Admin Sodium Chloride 1,000 ml @ 60 mls/hr [id number] IV 04/22/24 17:00 04/24/24 02:09 60 MLS/HR Acetaminophen/ Hydrocodone Bitart 1 tab Q4HP PRN PO 04/22/24 17:00 Ondansetron HCl 4 mg Q4HP PRN IV 04/22/24 17:00 Docusate Sodium 100 mg BIDPRN PRN PO 04/22/24 17:00 Acetaminophen 650 mg Q6HP PRN PO 04/22/24 17:00 Morphine Sulfate 2 mg Q4HPRN PRN IV 04/22/24 17:00 Nitroglycerin 0.4 mg Q5MINP PRN SL 04/22/24 17:00 Morphine Sulfate 2 mg Q30M PRN IV 04/22/24 17:00 Enoxaparin Sodium 40 mg DAILY SC 04/23/24 10:00 04/23/24 10:05 40 MG Finasteride 5 mg DAILY PO 04/23/24 10:00 04/24/24 09:13 5 MG Furosemide 40 mg DAILY PO 04/23/24 10:00 Lisinopril 5 mg DAILY PO 04/23/24 10:00 Metoprolol Tartrate 25 mg BID PO 04/22/24 22:00 04/22/24 22:27 25 MG Paroxetine HCl 20 mg DAILY PO 04/23/24 10:00 04/24/24 09:12 20 MG Tamsulosin HCl 0.4 mg DAILY PO 04/23/24 10:00 04/24/24 09:12 0.4 MG Aspirin 81 mg DAILY PO 04/23/24 10:00 04/23/24 10:05 81 MG Patient Own Medication 1 eyes Q4HR EACHEYE 04/22/24 22:00 04/24/24 09:10 1 EYES Atorvastatin Calcium 20 mg HS PO 04/22/24 22:00 04/23/24 21:35 20 MG Examination: GENERAL:Abnormal, HEENT:Abnormal, LUNGS:Abnormal, CVS:Abnormal, ABDOMEN:Abnormal laboratory and microbiology Laboratory Tests 04/23/24 05:38 Test 04/23/24 05:38 Range/Units Serum Glucose 106 74-106 mg/dL Problem List/Assessment/Plan Problem List/Assessment/Plan syncope av node conduction disease atrial flutter recommedn ICD/ biv per EP recs start doac to follow hx of low ef 25-35% in past 8 years despite OMT Plan discussed with: Patient Date of Service: Apr 24, 2024 Billing Provider: MANJINDER HOOD MD Common Visit Codes: NOT BILLABLE MANJINDER HOOD MD Apr 24, 2024 13:59
--- NOTE | 2024-04-24 17:17 | DVHPN2 ---
Subjective Patient was found to when for history of one atrial flutter, denies any complaints Changes from previous H/P or p: No Changes Objective Vitals Vital Signs Date Time Temp Pulse Resp B/P (MAP) Pulse Ox O2 Delivery O2 Flow Rate FiO2 04/24/24 16:07 56 146/84 04/24/24 13:00 16 93 04/24/24 13:00 98.0 98.0 04/24/24 08:01 Room Air* 0 21 Intake/Output Intake and Output 04/24/24 07:00 Intake Total 880 ml Output Total 250 ml Balance 630 ml Intake Oral 400 ml IV Total 480 ml Output Urine Total 250 ml # Voids 1 Exam HEENT pupils are reactive Neck is supple CV is S1-S2 regular rate and rhythm Respiratory are clear GI positive bowel sound 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 Medications Current Medications Medications Dose Ordered Sig/Jenny Route Start Time Stop Time Status Last Admin Dose Admin Sodium Chloride 1,000 ml @ 60 mls/hr [id number] IV 04/22/24 17:00 04/24/24 02:09 60 MLS/HR Acetaminophen/ Hydrocodone Bitart 1 tab Q4HP PRN PO 04/22/24 17:00 Ondansetron HCl 4 mg Q4HP PRN IV 04/22/24 17:00 Docusate Sodium 100 mg BIDPRN PRN PO 04/22/24 17:00 Acetaminophen 650 mg Q6HP PRN PO 04/22/24 17:00 Morphine Sulfate 2 mg Q4HPRN PRN IV 04/22/24 17:00 Nitroglycerin 0.4 mg Q5MINP PRN SL 04/22/24 17:00 Morphine Sulfate 2 mg Q30M PRN IV 04/22/24 17:00 Enoxaparin Sodium 40 mg DAILY SC 04/23/24 10:00 04/23/24 10:05 40 MG Finasteride 5 mg DAILY PO 04/23/24 10:00 04/24/24 09:13 5 MG Furosemide 40 mg DAILY PO 04/23/24 10:00 04/24/24 16:06 40 MG Lisinopril 5 mg DAILY PO 04/23/24 10:00 04/24/24 16:06 5 MG Metoprolol Tartrate 25 mg BID PO 04/22/24 22:00 04/24/24 16:07 25 MG Paroxetine HCl 20 mg DAILY PO 04/23/24 10:00 04/24/24 09:12 20 MG Tamsulosin HCl 0.4 mg DAILY PO 04/23/24 10:00 04/24/24 09:12 0.4 MG Aspirin 81 mg DAILY PO 04/23/24 10:00 04/23/24 10:05 81 MG Patient Own Medication 1 eyes Q4HR EACHEYE 04/22/24 22:00 04/24/24 14:11 1 EYES Atorvastatin Calcium 20 mg HS PO 04/22/24 22:00 04/23/24 21:35 20 MG Laboratory Results Laboratory Tests 04/23/24 05:38 Coagulation Test 04/23/24 18:53 Prothrombin Time 11.5 sec (9.3-11.8) Prothrombin Time INR 1.09 (0.9-1.15) Activated Partial Thromboplast Time 30.0 SEC (24.5-34.5) Urinalysis Test 04/23/24 10:07 Urine Color Yellow (Yellow) Urine Clarity Clear (Clear) Urine pH 6.5 (5.0-9.0) Urine Specific [place] 1.022 (1.001-1.035) Urine Protein Trace (Negative) H Urine Ketones Negative (Negative) Urine Blood Negative /uL (Negative) Urine Nitrite Negative (Negative) Urine Bilirubin Negative (Negative) Urine Urobilinogen Normal mg/dL (Negative) Urine Leukocyte Esterase Negative /uL (Negative) Urine RBC 4 /hpf (0 - 3) Urine Microscopic WBC 1 /HPF (0-3) Urine Squamous Epithelial Cells Few /hpf (<5) Urine Bacteria None seen /hpf (None Seen) Urine Glucose Normal mg/dL (Normal) Assessment/Plan Assessment/Plan 83-year-old male with a known history of hypertension, dyslipidemia, coronary artery disease status post three-vessel CABG, BPH, anxiety disorder initially presented to the hospital with a passing out spell found to have 1. Syncope suspect secondary to atrial flutter 2. Coronary artery disease status post three-vessel CABG 3. Atrial flutter 4. Dyslipidemia 5. BPH 6. Anxiety disorder 0 7 he has cardiomyopathy with EF of 35% -tele observation, 2D echo showed EF of 35%, cardiology consultation appreciated -electrophysiology consultation for Bv AICD Plan discussed with: Patient Date of Service: Apr 24, 2024 Billing Provider: ASHOK DIALLO MD Common Visit Codes: NOT BILLABLE ASHOK DIALLO MD Apr 24, 2024 17:17
--- NOTE | 2024-04-24 18:55 | DVHINCON2 ---
Date of service: Apr 24, [address] Guan Reason for Consultation Evaluation for Permanent Pacemaker Implantation History of Present Illness This is an 83-year old male known to Dr. Guan who initially presented (04/22/2024) with reported syncope. Patient himself reports he was at home in his garage turning off his sprinkler system when he felt a sudden onset of light- headedness/dizziness for which he sat down on the olvera of his car to alleviate symptoms. whom was at the bedside during time of consultation reports at time of the event heard a loud thud from their garage and upon inspection patient was found on the ground and later transported to the ED for further evaluation and management. Upon ED arrival, CT imaging of the Brain was performed and found unremarkable. Initial serum glucose level was found to be 119. Initial 12-lead electrocardiogram was performed revealing atrial flutter with presence of a variable AV block (4:1 conduction) at 57 bpm, QRS duration of 108ms, and no acute ischemic changes. Initial blood pressure was found to be 159/77mmHg. Initial HS troponin level was found normal at 25 with subsequent repeat levels of 42, and 131 for which the patient has been followed by Interventional Cardiology services. Of note, patient has a baseline history of ischemic cardiomyopathy as he underwent hospitalization at this facility back in August of 2017. At that time, patient was found to have a severely reduced LVEF of 20-25% per Echocardiogram (08/23/2017) and underwent subsequent ischemic workup found to have multivessel coronary artery disease for which he underwent 3V CABG. At that time, patient had developed a new-onset atrial fibrillation which reports indicate the patient had eventually converted to sinus rhythm via chemical conversion (Amiodarone). At present, subsequent 2D Echocardiogram (04/23/2024) has been performed and revealed a reduced LVEF of 35% despite previous coronary revascularization and concurrent GDMT for systolic heart failure > 3 months. Throughout course of present admission, orthostatic vital signs have been found negative for postural hypotension. Telemetry has revealed atrial flutter (4:1 conduction) with intermittent episodes of slow ventricular response (SVR), and lowest documented heart rates within the 30's. As the patient initially presented secondary to syncope and found to have symptomatic atrial flutter (4:1 conduction) with slow ventricular response, Electrophysio logy services were involved by Interventional Cardiology request to evaluate the patient for potential permanent pacemaker implantation. Past Medical History Past medical history includes ischemic cardiomyopathy, multivessel coronary artery disease status post 3V CABG (08/2017), paroxysmal atrial fibrillation, hyperlipidemia, hypertension, benign prostatic hypertrophy, depression, and previous cholecystectomy (08/2017) Past Surgical History Reviewed Family History: Cardiovascular disease G8 MOTHER Allergies: Coded Allergies: NO KNOWN ALLERGIES (Unverified , 08/22/17) Home Meds Active Scripts Potassium Chloride (Klor-Con M20) 20 Meq Tab, 20 MEQ PO BID, #60 TAB Prov:MARJORIE GAUTAM MD 09/04/17 Furosemide (Lasix) 40 Mg Tab, 40 MG PO DAILY, #30 TAB Prov:MARJORIE GAUTAM MD 09/04/17 Metoprolol Tartrate (Lopressor) 25 Mg Tb, 25 MG PO BID, #60 Prov:MARJORIE GAUTAM MD 09/04/17 Lisinopril (Lisinopril) 5 Mg Tab, 5 MG PO DAILY, #30 TAB Prov:MARJROIE GAUTAM MD 09/04/17 Reported Medications Levothyroxine Sodium (Levothyroxine Sodium) 25 Mcg Tab, 1 TAB PO QAM for 90 Days, #90 325 Paroxetine Hydrochloride (Paroxetine Hydrochloride) 10 Mg Tab, 1 TAB PO DAILY f or 90 Days, #90 25 Aspirin (Aspir-81) 81 Mg Tab, 1 TAB PO DAILY, #30 TAB 5 Refills 04/23/24 Carboxymethylcellulose-Glyceri (Clear Eyes For Dry Eyes) Dry Eyes Claudia, 1 EYES EACHEYE Q4HR, CLAUDIA 08/29/17 Finasteride (Finasteride) 5 Mg Tab, 5 MG PO DAILY for 30 Days, MG 08/24/17 Tamsulosin Hcl (Tamsulosin Hcl) 0.4 Mg Cap, 1 CAP PO DAILY, #30 CAP 5 Refills 08/24/17 Simvastatin (Simvastatin) 40 Mg Tab, 40 MG PO DAILY, TAB 08/24/17 Discontinued Reported Medications Aspirin (Aspirin) 325 Mg Tab, 81 MG PO DAILY for 30 Days, MG 08/24/17 Paroxetine (PAXIL TABLET) 20 Mg Tb, 1 TAB PO DAILY, #90 TAB 3 Refills 08/24/17 Review of Systems Heart: S1 and S2 regular. The patient is in atrial flutter with SVR Lungs: Scattered rhonchi. Abdomen: Benign. Extremities: Distal pulses palpable, 2+. No evidence for peripheral edema Vital Signs Vital Signs Date Time Temp Pulse Resp B/P (MAP) Pulse Ox O2 Delivery O2 Flow Rate FiO2 04/24/24 17:07 83 144/61 04/24/24 17:00 99.4 16 89 99.4 04/24/24 08:01 Room Air* 0 21 Labs/Diagnostic Data Labs Test 04/23/24 18:53 04/23/24 10:07 04/23/24 05:38 04/22/24 16:35 Range/Units Prothrombin Time 11.5 9.3-11.8 sec Prothrombin Time INR 1.09 0.9-1.15 Activated Partial Thromboplast Time 30.0 24.5-34.5 SEC Urine Color Yellow Yellow Urine Clarity Clear Clear Urine pH 6.5 5.0-9.0 Urine Specific [place] 1.022 1.001-1.035 Urine Protein Trace H Negative Urine Ketones Negative Negative Urine Blood Negative Negative /uL Urine Nitrite Negative Negative Urine Bilirubin Negative Negative Urine Urobilinogen Normal Negative mg/dL Urine Leukocyte Esterase Negative Negative /uL Urine RBC 4 0 - 3 /hpf Urine Microscopic WBC 1 0-3 /HPF Urine Squamous Epithelial Cells Few <5 /hpf Urine Bacteria None seen None Seen /hpf Urine Glucose Normal Normal mg/dL White Blood Count 8.6 # 4.4-10.8 10^3/uL Red Blood Count 4.13 L 4.5-5.90 10^6/uL Hemoglobin 12.4 L 13.5-17.5 g/dL Hematocrit 36.3 L 41.0-53.0 % Mean Corpuscular Volume 88.0 80.0-100.0 fL Mean Corpuscular Hemoglobin 29.9 28.0-32.0 pg Mean Corpuscular Hemoglobin Concent 34.0 32.0-36.0 g/dL Red Cell Distribution Width 14.5 H 11.8-14.3 % Platelet Count 159 140-450 10^3/uL Mean Platelet Volume 8.8 6.9-10.8 fL Neutrophils (%) (Auto) 79.3 37.0-80.0 % Lymphocytes (%) (Auto) 10.6 10.0-50.0 % Monocytes (%) (Auto) 9.0 0.0-12.0 % Eosinophils (%) (Auto) 0.7 0.0-7.0 % Basophils (%) (Auto) 0.4 0.0-2.0 % Neutrophils # (Auto) 6.8 1.6-8.6 10 ^3/uL Lymphocytes # (Auto) 0.9 0.4-5.4 10 ^3/uL Monocytes # (Auto) 0.8 0-1.3 10 ^3/uL Eosinophils # (Auto) 0.1 0-0.8 10 ^3/uL Basophils # (Auto) 0 0-0.2 10 ^3/uL Nucleated Red Blood Cells 0.0 % Sodium Level 141 136-145 mmol/L Potassium Level 4.5 3.5-5.1 mmol/L Chloride Level 110 H 98-107 mmol/L Carbon Dioxide Level 25 20-31 mmol/L Anion Gap 6 5-15 Blood Urea Nitrogen 16 9-23 mg/dL Creatinine 1.22 0.700-1.30 mg/dL Glomerular Filtration Rate Calc 58 >90 mL/min BUN/Creatinine Ratio 13.1 10.0-20.0 Serum Glucose 106 74-106 mg/dL Calcium Level 9.1 8.7-10.4 mg/dL Total Bilirubin 0.7 0.2-1.0 mg/dL Aspartate Amino Transferase (AST) 18 13-40 U/L Alanine Aminotransferase (ALT) 10 7-40 U/L Alkaline Phosphatase 63 46-116 U/L Total Protein 5.9 5.7-8.2 g/dL Albumin 3.7 3.2-4.8 g/dL Troponin I High Sensitivity 131 *H </=54 ng/L Plan/Recommendation ASSESSMENT: This is an 83-year old male known to Dr. Guan who initially presented (04/22/2024) with reported syncope. Patient himself reports he was at home in his garage turning off his sprinkler system when he felt a sudden onset of light- headedness/dizziness for which he sat down on the olvera of his car to alleviate symptoms. whom was at the bedside during time of consultation reports at time of the event heard a loud thud from their garage and upon inspection patient was found on the ground and later transported to the ED for further evaluation and management. Upon ED arrival, CT imaging of the Brain was performed and found unremarkable. Initial serum glucose level was found to be 119. Initial 12-lead electrocardiogram was performed revealing atrial flutter with presence of a variable AV block (4:1 conduction) at 57 bpm, QRS duration of 108ms, and no acute ischemic changes. Initial blood pressure was found to be 159/77mmHg. Initial HS troponin level was found normal at 25 with subsequent repeat levels of 42, and 131 for which the patient has been followed by [facility] Cardiology services. Of note, patient has a baseline history of ischemic cardiomyopathy as he underwent hospitalization at this facility back in August of 2017. At that time, patient was found to have a severely reduced LVEF of 20-25% per Echocardiogram (08/23/2017) and underwent subsequent ischemic workup found to have multivessel coronary artery disease for which he underwent 3V CABG. At that time, patient had developed a new-onset atrial fibrillation which reports indicate the patient had eventually converted to sinus rhythm via chemical conversion (Amiodarone). At present, subsequent 2D Echocardiogram (04/23/2024) has been performed and revealed a reduced LVEF of 35% despite previous coronary revascularization and concurrent GDMT for systolic heart failure > 3 months. Throughout course of present admission, orthostatic vital signs have been found negative for postural hypotension. Telemetry has revealed atrial flutter (4:1 conduction) with intermittent episodes of slow ventricular response (SVR), and lowest documented heart rates within the 30's. As the patient initially presented secondary to syncope and found to have symptomatic atrial flutter (4:1 conduction) with slow ventricular response, Electrophysiology services were involved by Interventional Cardiology request to evaluate the patient for potential permanent pacemaker implantation. Past medical history includes ischemic cardiomyopathy, multivessel coronary artery disease status post 3V CABG (08/2017), paroxysmal atrial fibrillation, hyperlipidemia, hypertension, benign prostatic hypertrophy, depression, and previous cholecystectomy (08/2017) Syncope Symptomatic atrial flutter (4:1 conduction) with SVR Ischemic cardiomyopathy, status post previous 3V CABG (08/2017) Severely reduced LVEF of 35% as per Echocardiogram (04/23/2024) Coronary artery disease QRS < 120 milliseconds Primary prevention ELECTROPHYSIOLOGY SUGGESTIONS FOR MANAGEMENT: As the patient initially presented secondary to syncope and found to have symptomatic atrial flutter (4:1 conduction) with slow ventricular response, Electrophysiology services were involved by Interventional Cardiology request to evaluate the patient for potential permanent pacemaker implantation. Upon further chart review/evaluation, patient does have a baseline history of ischemic cardiomyopathy and is presently found to have a severely reduced LVEF of 35% despite previous coronary revascularization and concurrent GDMT for systolic heart failure > 3 months; therefore, given the aforementioned above, patient benefits from undergoing AICD implantation not only for symptomatic bradycardia however for primary prevention against sudden cardiac as well. Benefits, risks, and alternatives were discussed with both the patient and his at length who have agreed to the aforementioned plan above. Therefore, will proceed with AICD implantation. Patient to be consented and NPO status at midnight. To hold all anti-coagulation/anti-platelet therapy for intended procedure. To consider addition of Atropine as needed for rate support during the interim. Remainder of cardiac management as per Intervention Cardiology. Will proceed to follow from an EP perspective. Proceed with close rate and rhythm surveillance Proceed with close hemodynamic surveillance Proceed with optimized blood pressure control Transfuse to sustain HGB level above 7.0 Sustain Magnesium level greater than 2.0 Sustain Potassium level greater than 4.0 Follow up renal function and electrolytes Management in telemetry Follow up primary cardiology recommendations Will proceed to follow from an EP perspective Further recommendations per clinical progression All available diagnostic labs, EKG's, and images were personally reviewed Patient's status, findings, and plan of care was reviewed and discussed with supervising physician Dr. Huizar, who is in agreement with current plan of care. Plan of care discussed with and agreed upon by patient / family / primary RN Prognosis: Guarded Thank you for allowing me to participate in the care of this patient. Further recommendations based on patients clinical course and progression, primary attending, and other consultants. Will continue to follow with primary attending. If you have any questions or concerns, please do not hesitate to co ntact me. A total of 75 minutes was spent reviewing the patient record, examining the patient, making a diagnostic and therapeutic plan, discussing this plan with medical personnel, following up on diagnostic studies and following the patient for clinical stability excluding any and all procedures. At least 50% of this time was spent in direct, [id number] contact. Plan discussed with: Other (Patient, Spouse, and Primary RN ) DAVID ESPINOZA Apr 24, 2024 18:55
[2024-04-25] VITALS (12 sets, daily range): BP systolic 112–146; BP diastolic 42–72; PULSE 47–64; RESP 15–18; TEMP 97.6–99.2; O2SAT 93–96
--- NOTE | 2024-04-25 10:39 | DVHPN2 ---
Progress Note - Dictate Date Seen: Apr 25, 2024 Medical Necessity Reason Pt with a Central, PICC or Fol: No Subjective Seen and examined at the bedside within telemetry. Maintaining atrial flutter with SVR within the 40s upon telemetry review. Planned for AICD today with Dr. Huizar. Chart reviewed. vital signs Vital Sign Date Time Temp Pulse Resp B/P (MAP) Pulse Ox O2 Delivery O2 Flow Rate FiO2 04/25/24 09:00 97.6 48 15 134/72 (92) 93 97.6 04/24/24 20:00 Room Air* 0 21 Total Intake and Output 04/24/24 04/24/24 04/25/24 14:59 22:59 06:59 Intake Total 1560 ml 400 ml Output Total 350 ml 350 ml Balance -350 ml 1560 ml 50 ml medications Current Medications Medications Dose Ordered Sig/Jenny Route Start Time Stop Time Status Last Admin Dose Admin Sodium Chloride 1,000 ml @ 60 mls/hr [id number] IV 04/22/24 17:00 04/24/24 18:39 60 MLS/HR Acetaminophen/ Hydrocodone Bitart 1 tab Q4HP PRN PO 04/22/24 17:00 Ondansetron HCl 4 mg Q4HP PRN IV 04/22/24 17:00 Docusate Sodium 100 mg BIDPRN PRN PO 04/22/24 17:00 Acetaminophen 650 mg Q6HP PRN PO 04/22/24 17:00 Morphine Sulfate 2 mg Q4HPRN PRN IV 04/22/24 17:00 Nitroglycerin 0.4 mg Q5MINP PRN SL 04/22/24 17:00 Morphine Sulfate 2 mg Q30M PRN IV 04/22/24 17:00 Enoxaparin Sodium 40 mg DAILY SC 04/23/24 10:00 04/23/24 10:05 40 MG Finasteride 5 mg DAILY PO 04/23/24 10:00 04/24/24 09:13 5 MG Furosemide 40 mg DAILY PO 04/23/24 10:00 04/24/24 16:06 40 MG Lisinopril 5 mg DAILY PO 04/23/24 10:00 04/24/24 16:06 5 MG Metoprolol Tartrate 25 mg BID PO 04/22/24 22:00 04/24/24 16:07 25 MG Paroxetine HCl 20 mg DAILY PO 04/23/24 10:00 04/24/24 09:12 20 MG Tamsulosin HCl 0.4 mg DAILY PO 04/23/24 10:00 04/24/24 09:12 0.4 MG Aspirin 81 mg DAILY PO 04/23/24 10:00 04/23/24 10:05 81 MG Patient Own Medication 1 eyes Q4HR EACHEYE 04/22/24 22:00 04/25/24 06:32 1 EYES Atorvastatin Calcium 20 mg HS PO 04/22/24 22:00 04/24/24 21:49 20 MG laboratory and microbiology Laboratory Tests 04/23/24 05:38 Test 04/23/24 05:38 Range/Units Serum Glucose 106 74-106 mg/dL Assessment/Plan Plan/Recommendation ASSESSMENT: This is an 83-year old male known to Dr. Guan who initially presented (04/22/2024) with reported syncope. Patient himself reports he was at home in his garage turning off his sprinkler system when he felt a sudden onset of light- headedness/dizziness for which he sat down on the [place] of his car to alleviate symptoms. whom was at the bedside during time of consultation reports at time of the event heard a loud thud from their garage and upon inspection patient was found on the ground and later transported to the ED for further evaluation and management. Upon ED arrival, CT imaging of the Brain was performed and found unremarkable. Initial serum glucose level was found to be 119. Initial 12-lead electrocardiogram was performed revealing atrial flutter with presence of a variable AV block (4:1 conduction) at 57 bpm, QRS duration of 108ms, and no acute ischemic changes. Initial blood pressure was found to be 159/77mmHg. Initial HS troponin level was found normal at 25 with subsequent repeat levels of 42, and 131 for which the patient has been followed by Interventional Cardiology services. Of note, patient has a baseline history of ischemic cardiomyopathy as he underwent hospitalization at this facility back in August of 2017. At that time, patient was found to have a severely reduced LVEF of 20-25% per Echocardiogram (08/23/2017) and underwent subsequent ischemic workup found to have multivessel coronary artery disease for which he underwent 3V CABG. At that time, patient had developed a new-onset atrial fibrillation which reports indicate the patient had eventually converted to sinus rhythm via chemical conversion (Amiodarone). At present, subsequent 2D Echocardiogram (04/23/2024) has been performed and revealed a reduced LVEF of 35% despite previous coronary revascularization and concurrent GDMT for systolic heart failure > 3 months. Throughout course of present admission, orthostatic vital signs have been found negative for postural hypotension. Telemetry has revealed atrial flutter (4:1 conduction) with intermittent episodes of slow ventricular response (SVR), and lowest documented heart rates within the 30's. As the patient initially presented secondary to syncope and found to have symptomatic atrial flutter (4:1 conduction) with slow ventricular response, Electrophysiology services were involved by Interventional Cardiology request to evaluate the patient for potential permanent pacemaker implantation. Past medical history includes ischemic cardiomyopathy, multivessel coronary artery disease status post 3V CABG (08/2017), paroxysmal atrial fibrillation, hyperlipidemia, hypertension, benign prostatic hypertrophy, depression, and previous cholecystectomy (08/2017) Syncope Symptomatic atrial flutter (4:1 conduction) with SVR Ischemic cardiomyopathy, status post previous 3V CABG (08/2017) Severely reduced LVEF of 35% as per Echocardiogram (04/23/2024) Coronary artery disease QRS < 120 milliseconds Primary prevention ELECTROPHYSIOLOGY SUGGESTIONS FOR MANAGEMENT: As the patient initially presented secondary to syncope and found to have symptomatic atrial flutter (4:1 conduction) with slow ventricular response, Electrophysiology services were involved by Interventional Cardiology request to evaluate the patient for potential permanent pacemaker implantation. Upon further chart review/evaluation, patient does have a baseline history of ischemic cardiomyopathy and is presently found to have a severely reduced LVEF of 35% despite previous coronary revascularization and concurrent GDMT for systolic heart failure > 3 months; therefore, given the aforementioned above, patient benefits from undergoing AICD implantation not only for symptomatic bradycardia however for primary prevention against sudden cardiac as well. Benefits, risks, and alternatives were discussed with both the patient and his at length who have agreed to the aforementioned plan above. Therefore, will proceed with AICD implantation later this afternoon with Dr. Huizar. Patient has been consented and remains NPO status. To hold all anti-coagulation/anti-platelet therapy for intended procedure. To consider addition of Atropine as needed for rate support during the interim. Remainder of cardiac management as per Intervention Cardiology. Will proceed to follow from an EP perspective. Proceed with close rate and rhythm surveillance Proceed with close hemodynamic surveillance Proceed with optimized blood pressure control Transfuse to sustain HGB level above 7.0 Sustain Magnesium level greater than 2.0 Sustain Potassium level greater than 4.0 Follow up renal function and electrolytes Management in telemetry Follow up primary cardiology recommendations Will proceed to follow from an EP perspective Further recommendations per clinical progression All available diagnostic labs, EKG's, and images were personally reviewed Patient's status, findings, and plan of care was reviewed and discussed with supervising physician Dr. Huizar, who is in agreement with current plan of care. Plan of care discussed with and agreed upon by patient / family / primary RN Prognosis: Guarded Thank you for allowing me to participate in the care of this patient. Further recommendations based on patients clinical course and progression, primary attending, and other consultants. Will continue to follow with primary attending. If you have any questions or concerns, please do not hesitate to contact me. A total of 75 minutes was spent reviewing the patient record, examining the patient, making a diagnostic and therapeutic plan, discussing this plan with medical personnel, following up on diagnostic studies and following the patient for clinical stability excluding any and all procedures. At least 50% of this time was spent in direct, [id number] contact. Plan discussed with: Other (Patient, Spouse, and Primary RN ) Dietary Evaluation Review Comments: 1) Advance diet as medically feasible 2) Consider cardiac diet as goal diet 3) Continue current plan of care Expected Outcomes/Goals: Pt will meet 75% estimated needs Fu 2-3 days Plan discussed with: Other (Patient, Family, and Primary RN ) DAVID ESPINOZA Apr 25, 2024 10:39
--- NOTE | 2024-04-25 11:38 | DVHPN2 ---
Subjective Patient denies any chest pain shortness of breath. Denies any palpitation. Going for AICD today. 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 Medications Current Medications Medications Dose Ordered Sig/Jenny Route Start Time Stop Time Status Last Admin Dose Admin Sodium Chloride 1,000 ml @ 60 mls/hr [id number] IV 04/22/24 17:00 04/24/24 18:39 60 MLS/HR Acetaminophen/ Hydrocodone Bitart 1 tab Q4HP PRN PO 04/22/24 17:00 Ondansetron HCl 4 mg Q4HP PRN IV 04/22/24 17:00 Docusate Sodium 100 mg BIDPRN PRN PO 04/22/24 17:00 Acetaminophen 650 mg Q6HP PRN PO 04/22/24 17:00 Morphine Sulfate 2 mg Q4HPRN PRN IV 04/22/24 17:00 Nitroglycerin 0.4 mg Q5MINP PRN SL 04/22/24 17:00 Morphine Sulfate 2 mg Q30M PRN IV 04/22/24 17:00 Enoxaparin Sodium 40 mg DAILY SC 04/23/24 10:00 04/23/24 10:05 40 MG Finasteride 5 mg DAILY PO 04/23/24 10:00 04/25/24 11:10 5 MG Furosemide 40 mg DAILY PO 04/23/24 10:00 04/25/24 11:10 40 MG Lisinopril 5 mg DAILY PO 04/23/24 10:00 04/25/24 11:11 5 MG Metoprolol Tartrate 25 mg BID PO 04/22/24 22:00 04/24/24 16:07 25 MG Paroxetine HCl 20 mg DAILY PO 04/23/24 10:00 04/25/24 11:10 20 MG Tamsulosin HCl 0.4 mg DAILY PO 04/23/24 10:00 04/25/24 11:09 0.4 MG Aspirin 81 mg DAILY PO 04/23/24 10:00 04/23/24 10:05 81 MG Patient Own Medication 1 eyes Q4HR EACHEYE 04/22/24 22:00 04/25/24 11:11 1 EYES Atorvastatin Calcium 20 mg HS PO 04/22/24 22:00 04/24/24 21:49 20 MG Laboratory Results Laboratory Tests 04/23/24 05:38 Urinalysis Test 04/23/24 10:07 Urine Color Yellow (Yellow) Urine Clarity Clear (Clear) Urine pH 6.5 (5.0-9.0) Urine Specific [place] 1.022 (1.001-1.035) Urine Protein Trace (Negative) H Urine Ketones Negative (Negative) Urine Blood Negative /uL (Negative) Urine Nitrite Negative (Negative) Urine Bilirubin Negative (Negative) Urine Urobilinogen Normal mg/dL (Negative) Urine Leukocyte Esterase Negative /uL (Negative) Urine RBC 4 /hpf (0 - 3) Urine Microscopic WBC 1 /HPF (0-3) Urine Squamous Epithelial Cells Few /hpf (<5) Urine Bacteria None seen /hpf (None Seen) Urine Glucose Normal mg/dL (Normal) Assessment/Plan Assessment/Plan 83-year-old male with a known history of hypertension, dyslipidemia, coronary artery disease status post three-vessel CABG, BPH, anxiety disorder initially presented to the hospital with a passing out spell found to have 1. Syncope suspect secondary to atrial flutter 2. Coronary artery disease status post three-vessel CABG 3. Atrial flutter 4. Dyslipidemia 5. BPH 6. Anxiety disorder 7. Ischemic cardiomyopathy with EF of 35% -tele observation, 2D echo showed EF of 35%, cardiology consultation appreciated -electrophysiology consultation for biventricular AICD. -patient and patient's spouse agrees to the current plan of care. Plan discussed with: Patient, Spouse Date of Service: Apr 25, 2024 Billing Provider: ASHOK DIALLO MD Common Visit Codes: NOT BILLABLE ASHOK DIALLO MD Apr 25, 2024 11:38
[2024-04-25] MEDS: VANCOMYCIN HCL 1000 MG VL ONE ×2 (11:56→13:16)
[2024-04-25] MEDS: fentaNYL CITRATE 100 MCG/2 ML VL ONE (11:56)
[2024-04-25] MEDS: MIDAZOLAM HCL 2MG/2ML 2ml VIAL (1mg/ml) ONE (11:56)
[2024-04-25] MEDS: VANCOMYCIN 1GM/250ML KIT 250 ML IV ONE (11:56)
[2024-04-25] MEDS: IODIXANOL 320MG/ML 100ML BTL IV ONE (11:56)
[2024-04-25] MEDS: LIDOCAINE 2%HCL (LOCAL ANESTH.) INJ 20ML MDV ONE (12:03)
[2024-04-25] MEDS: ceFAZolin 1GM VL ONE ×2 (12:43→12:44)
--- NOTE | 2024-04-25 14:06 | DVH ---
EXAM: XY CHEST PORTABLE Indication: S/P PACEMAKER Technique: Single frontal view of the chest was obtained Comparison: XY CHEST PORTABLE on DOS: 04/22/24 FINDINGS: Lines and Tubes: Cardiac pacemaker projects over left chest wall. Lungs: Pulmonary vascular congestion. Pleura: No effusion. No pneumothorax. Cardiomediastinal contours: Cardiomegaly. Bones: No acute osseous abnormality. IMPRESSION: Cardiomegaly with pulmonary vascular congestion. Cardiac pacemaker projects over left chest wall.
--- NOTE | 2024-04-25 15:00 | DVHPN2 ---
Progress Note Date Seen: Apr 25, 2024 Medical Necessity Reason Pt with a Central, PICC or Fol: No Subjective Patient reports: Feels better Other Systems: sp ICD Objective vital signs Vital Sign Date Time Temp Pulse Resp B/P (MAP) Pulse Ox O2 Delivery O2 Flow Rate FiO2 04/25/24 11:11 134/72 04/25/24 10:00 42 04/25/24 09:00 97.6 15 93 97.6 04/25/24 08:00 Room Air* 0 21 Total Intake and Output 04/24/24 04/24/24 04/25/24 15:00 23:00 07:00 Intake Total 1560 ml 400 ml Output Total 350 ml 350 ml Balance -350 ml 1560 ml 50 ml medications Current Medications Medications Dose Ordered Sig/Jenny Route Start Time Stop Time Status Last Admin Dose Admin Sodium Chloride 1,000 ml @ 60 mls/hr [id number] IV 04/22/24 17:00 04/24/24 18:39 60 MLS/HR Acetaminophen/ Hydrocodone Bitart 1 tab Q4HP PRN PO 04/22/24 17:00 Ondansetron HCl 4 mg Q4HP PRN IV 04/22/24 17:00 Docusate Sodium 100 mg BIDPRN PRN PO 04/22/24 17:00 Acetaminophen 650 mg Q6HP PRN PO 04/22/24 17:00 Morphine Sulfate 2 mg Q4HPRN PRN IV 04/22/24 17:00 Nitroglycerin 0.4 mg Q5MINP PRN SL 04/22/24 17:00 Morphine Sulfate 2 mg Q30M PRN IV 04/22/24 17:00 Enoxaparin Sodium 40 mg DAILY SC 04/23/24 10:00 04/23/24 10:05 40 MG Finasteride 5 mg DAILY PO 04/23/24 10:00 04/25/24 11:10 5 MG Furosemide 40 mg DAILY PO 04/23/24 10:00 04/25/24 11:10 40 MG Lisinopril 5 mg DAILY PO 04/23/24 10:00 04/25/24 11:11 5 MG Metoprolol Tartrate 25 mg BID PO 04/22/24 22:00 04/24/24 16:07 25 MG Paroxetine HCl 20 mg DAILY PO 04/23/24 10:00 04/25/24 11:10 20 MG Tamsulosin HCl 0.4 mg DAILY PO 04/23/24 10:00 04/25/24 11:09 0.4 MG Aspirin 81 mg DAILY PO 04/23/24 10:00 04/23/24 10:05 81 MG Patient Own Medication 1 eyes Q4HR EACHEYE 04/22/24 22:00 04/25/24 11:11 1 EYES Atorvastatin Calcium 20 mg HS PO 04/22/24 22:00 04/24/24 21:49 20 MG Vancomycin HCl 200 ml @ 200 mls/hr Q12HR IV 04/26/24 02:00 04/26/24 10:59 Examination: GENERAL:Abnormal, HEENT:Abnormal, LUNGS:Abnormal, CVS:Abnormal, ABDOMEN:Abnormal laboratory and microbiology Laboratory Tests 04/23/24 05:38 Test 04/23/24 05:38 Range/Units Serum Glucose 106 74-106 mg/dL Problem List/Assessment/Plan Problem List/Assessment/Plan syncope av node conduction disease atrial flutter recommedn ICD/ biv per EP recs start doac to follow hx of low ef 25-35% in past 8 years despite OMT sp ICD probable home tomorrow Plan discussed with: Patient Dietary Evaluation Review Comments: 1) Advance diet as medically feasible 2) Consider cardiac diet as goal diet 3) Continue current plan of care Expected Outcomes/Goals: Pt will meet 75% estimated needs Fu 2-3 days Date of Service: Apr 25, 2024 Billing Provider: MANJINDER HOOD MD Common Visit Codes: NOT BILLABLE MANJINDER HOOD MD Apr 25, 2024 15:00
[2024-04-26] VITALS (7 sets, daily range): BP systolic 106–137; BP diastolic 55–64; PULSE 47–61; RESP 16–18; TEMP 97.7–98; O2SAT 93–98
[2024-04-26] MEDS: VANCOMYCIN 1GM/250ML KIT 200 ML IV SCH (02:25)
[2024-04-26] MEDS: ACETAMINOPHEN 325 MG TAB PO PRN (10:15)
[2024-04-26] MEDS ORDERED: DOXY100C79 PO (13:31)
--- NOTE | 2024-04-26 13:34 | DVHDS2 ---
Discharge Summary Date of Admission Apr 22, 2024 at 16:51 Date of Discharge: Apr 26, 2024 Labs/Diagnostic Data: Laboratory Results Test 04/23/24 18:53 04/23/24 10:07 04/23/24 05:38 04/22/24 16:35 Prothrombin Time 11.5 sec (9.3-11.8) Prothrombin Time INR 1.09 (0.9-1.15) Activated Partial Thromboplast Time 30.0 SEC (24.5-34.5) Urine Color Yellow (Yellow) Urine Clarity Clear (Clear) Urine pH 6.5 (5.0-9.0) Urine Specific [place] 1.022 (1.001-1.035) Urine Protein Trace (Negative) Urine Ketones Negative (Negative) Urine Blood Negative /uL (Negative) Urine Nitrite Negative (Negative) Urine Bilirubin Negative (Negative) Urine Urobilinogen Normal mg/dL (Negative) Urine Leukocyte Esterase Negative /uL (Negative) Urine RBC 4 /hpf (0 - 3) Urine Microscopic WBC 1 /HPF (0-3) Urine Squamous Epithelial Cells Few /hpf (<5) Urine Bacteria None seen /hpf (None Seen) Urine Glucose Normal mg/dL (Normal) White Blood Count 8.6 10^3/uL (4.4-10.8) Red Blood Count 4.13 10^6/uL (4.5-5.90) Hemoglobin 12.4 g/dL (13.5-17.5) Hematocrit 36.3 % (41.0-53.0) Mean Corpuscular Volume 88.0 fL (80.0-100.0) Mean Corpuscular Hemoglobin 29.9 pg (28.0-32.0) Mean Corpuscular Hemoglobin Concent 34.0 g/dL (32.0-36.0) Red Cell Distribution Width 14.5 % (11.8-14.3) Platelet Count 159 10^3/uL (140-450) Mean Platelet Volume 8.8 fL (6.9-10.8) Neutrophils (%) (Auto) 79.3 % (37.0-80.0) Lymphocytes (%) (Auto) 10.6 % (10.0-50.0) Monocytes (%) (Auto) 9.0 % (0.0-12.0) Eosinophils (%) (Auto) 0.7 % (0.0-7.0) Basophils (%) (Auto) 0.4 % (0.0-2.0) Neutrophils # (Auto) 6.8 10 ^3/uL (1.6-8.6) Lymphocytes # (Auto) 0.9 10 ^3/uL (0.4-5.4) Monocytes # (Auto) 0.8 10 ^3/uL (0-1.3) Eosinophils # (Auto) 0.1 10 ^3/uL (0-0.8) Basophils # (Auto) 0 10 ^3/uL (0-0.2) Nucleated Red Blood Cells 0.0 % Sodium Level 141 mmol/L (136-145) Potassium Level 4.5 mmol/L (3.5-5.1) Chloride Level 110 mmol/L (98-107) Carbon Dioxide Level 25 mmol/L (20-31) Anion Gap 6 (5-15) Blood Urea Nitrogen 16 mg/dL (9-23) Creatinine 1.22 mg/dL (0.700-1.30) Glomerular Filtration Rate Calc 58 mL/min (>90) BUN/Creatinine Ratio 13.1 (10.0-20.0) Serum Glucose 106 mg/dL (74-106) Calcium Level 9.1 mg/dL (8.7-10.4) Total Bilirubin 0.7 mg/dL (0.2-1.0) Aspartate Amino Transferase (AST) 18 U/L (13-40) Alanine Aminotransferase (ALT) 10 U/L (7-40) Alkaline Phosphatase 63 U/L (46-116) Total Protein 5.9 g/dL (5.7-8.2) Albumin 3.7 g/dL (3.2-4.8) Troponin I High Sensitivity 131 ng/L (</=54) Other Laboratory Tests 04/23/24 05:38 Brief Hx & Hospital Course: 83-year-old male with a known history of hypertension, dyslipidemia, BPH, coronary artery disease status post CABG who initially presented to the hospital with a passing out spell. Patient has stated that she was turning of the water in the garage and all of sudden he passed out. Denies any seizure-like activities denies any stroke-like symptoms. Denies any chest pain. Patient was found by his in the garage. Patient denies any previous episode of similar kind. He is evaluated by nursing informatics clinical analyst for syncopal episode recommended electrophysiology evaluation. Therefore he is seen by electrophysiology nursing informatics clinical analyst and underwent successful AICD placement. Overnight patient is observed and clinically doing well. His heart rate in the 60s. He is feeling better asymptomatic ambulating without problems. He is evaluated by nursing informatics clinical analyst and felt stable to be discharged home with oral antibiotic and outpatient follow up with the his regular nursing informatics clinical analyst Dr. Hood. Patient given instructions regarding post AICD placement care at home as well as follow up. Patient and his who is at bedside verbalized understanding of this, verbalized understanding of his hospital diagnosis, procedure he has done, discharge medications, discharge instructions and agree with the follow-up plan of care as mentioned. Operations or Procedures Status post AICD placement for sick sinus syndrome by EP nursing informatics clinical analyst. Final OR report is pending APPROVED REPORT EXAM: Two-dimensional and M-mode echocardiogram with Doppler and color Doppler. Blood Pressure: 108/75 mmHg INDICATION Syncope Surgery/Intervention CABG: RISK FACTORS Height: 6'1", Weight: 182 DIMENSIONS LVDd 6.3 (3.8-5.7cm) LA (2D) 5.3 (1.9-4.0cm) Aortic Root (2.0- 3.7cm) LVDs 4.7 (2.5-4.0cm) LA (MM) (1.9-4.0cm) Aortic Cusp Exc (1.5- 2.0cm) EF (%) 50.0 (55-70%) Rt. Atrium 5.2 (1.9-4.0cm) Asc. Aorta cm IVSd (0.7-1.1cm) RV (D) 4.1 (1.8-2.4cm) Mitral Valve Mitral Mitral Stenosis E wave 1.11m/s MV Mean GR. mmHg E/A ratio 0.0 2D MVA cm2 Aortic Valve Aortic Valve Aortic Stenosis V1 1.14m/s AO Mean GR. 5mmHg V2 1.52m/s AO Peak GR. 9mmHg LVOT Diameter 2.0 (1.8-2.4cm) Doppler COLIN 2.36cm2 AI P 1/2 Time 571.48ms Tricuspid Valve TR Velocity 3.39m/s RVSP 54mmHg Other Information Quality : Technically Limited Rhythm : Technically limited study due to body habitus. Conclusion lvef 35 % diffuse hypokinesis of LV postop septum RV enlarged mild PFO is suspected biatrial enlargement mild tricuspid regurg mild mitral regurg SIGNED BY: MANJINDER HOOD MD SIGNED DATE/TIME: 04/23/24 5895 Condition at Discharge: Stable Final Diagnosis/Problems List AICD placement Discharge Disposition: Home Discharge Instruct/Medications Diet: Consistent carbohydrate, Cardiac 2g Na,low cholest Activity: No Restrictions, As Tolerated Activity comment: Do not lift your arm above shoulder for 10 days Follow Up/Referral: Cardiology next week pacemaker follow up. Medications: as prescribed and home medications New Medications: Doxycycline (Monohydrate) (Doxycycline) 100 Mg Cap 100 MG PO BID, #14 CAP Continued Medications: Aspirin (Aspir-81) 81 Mg Tab 1 TAB PO DAILY, #30 TAB 5 Refills Carboxymethylcellulose-Glyceri (Clear Eyes For Dry Eyes) Dry Eyes [place] 1 EYES EACHEYE Q4HR, PANCHITO Finasteride (Finasteride) 5 Mg Tab 5 MG PO DAILY for 30 Days, MG Furosemide (Lasix) 40 Mg Tab 40 MG PO DAILY, #30 TAB Levothyroxine Sodium (Levothyroxine Sodium) 25 Mcg Tab 1 TAB PO QAM for 90 Days, #90 Lisinopril (Lisinopril) 5 Mg Tab 5 MG PO DAILY, #30 TAB Metoprolol Tartrate (Lopressor) 25 Mg Tb 25 MG PO BID, #60 Paroxetine Hydrochloride (Paroxetine Hydrochloride) 10 Mg Tab 1 TAB PO DAILY for 90 Days, #90 Potassium Chloride (Klor-Con M20) 20 Meq Tab 20 MEQ PO BID, #60 TAB Simvastatin (Simvastatin) 40 Mg Tab 40 MG PO DAILY, TAB Tamsulosin Hcl (Tamsulosin Hcl) 0.4 Mg Cap 1 CAP PO DAILY, #30 CAP 5 Refills Discharge Statement: "Patient was advised to return to the ER or call 911 if any headaches, dizziness, shortness of breath, chest pain, abdominal pain, bleeding, fevers, or worsening of medical condition. Patient was counseled about treatment plan, medications, possible side effects, patientverbalized understanding. All questions were answered to the best of my ability. This discharge took greater then 30 minutes in planning, reviewing documentation, counseling the patient, and discussing with other team members." ASSESSMENT ASSESSMENT Assessment AICD placement TATE GLASER MD Apr 26, 2024 13:34
--- NOTE | 2024-04-26 15:03 | DVHPN2 ---
Progress Note Date Seen: Apr 26, 2024 Medical Necessity Reason Pt with a Central, PICC or Fol: No Subjective Patient reports: Feels better Objective vital signs Vital Sign Date Time Temp Pulse Resp B/P (MAP) Pulse Ox O2 Delivery O2 Flow Rate FiO2 04/26/24 13:00 97.9 47 18 130/55 (80) 95 97.9 04/26/24 07:30 Room Air* 0 21 Total Intake and Output 04/25/24 04/25/24 04/26/24 15:00 23:00 07:00 Intake Total 0 ml 600 ml Balance 0 ml 600 ml medications Current Medications Medications Dose Ordered Sig/Jenny Route Start Time Stop Time Status Last Admin Dose Admin Sodium Chloride 1,000 ml @ 60 mls/hr [id number] IV 04/22/24 17:00 04/26/24 04:20 60 MLS/HR Acetaminophen/ Hydrocodone Bitart 1 tab Q4HP PRN PO 04/22/24 17:00 Ondansetron HCl 4 mg Q4HP PRN IV 04/22/24 17:00 Docusate Sodium 100 mg BIDPRN PRN PO 04/22/24 17:00 Acetaminophen 650 mg Q6HP PRN PO 04/22/24 17:00 04/26/24 10:15 650 MG Morphine Sulfate 2 mg Q4HPRN PRN IV 04/22/24 17:00 Nitroglycerin 0.4 mg Q5MINP PRN SL 04/22/24 17:00 Morphine Sulfate 2 mg Q30M PRN IV 04/22/24 17:00 Enoxaparin Sodium 40 mg DAILY SC 04/23/24 10:00 04/23/24 10:05 40 MG Finasteride 5 mg DAILY PO 04/23/24 10:00 04/26/24 10:19 5 MG Furosemide 40 mg DAILY PO 04/23/24 10:00 04/26/24 12:10 40 MG Lisinopril 5 mg DAILY PO 04/23/24 10:00 04/26/24 12:10 5 MG Metoprolol Tartrate 25 mg BID PO 04/22/24 22:00 04/25/24 23:11 25 MG Paroxetine HCl 20 mg DAILY PO 04/23/24 10:00 04/26/24 10:19 20 MG Tamsulosin HCl 0.4 mg DAILY PO 04/23/24 10:00 04/26/24 10:15 0.4 MG Aspirin 81 mg DAILY PO 04/23/24 10:00 04/26/24 10:15 81 MG Patient Own Medication 1 eyes Q4HR EACHEYE 04/22/24 22:00 04/26/24 12:12 1 EYES Atorvastatin Calcium 20 mg HS PO 04/22/24 22:00 04/25/24 23:12 20 MG Examination: GENERAL:Abnormal, HEENT:Abnormal, LUNGS:Abnormal, CVS:Abnormal, ABDOMEN:Abnormal laboratory and microbiology Laboratory Tests 04/23/24 05:38 Test 04/23/24 05:38 Range/Units Serum Glucose 106 74-106 mg/dL Problem List/Assessment/Plan Problem List/Assessment/Plan syncope av node conduction disease atrial flutter recommedn ICD/ biv per EP recs start doac to follow hx of low ef 25-35% in past 8 years despite OMT sp ICD will need anticoag in future, cannot get now after procedure elevated cva risk fu pcp claar and cards in 1 week Plan discussed with: Patient Dietary Evaluation Review Comments: 1) Advance diet as medically feasible 2) Consider cardiac diet as goal diet 3) Continue current plan of care Expected Outcomes/Goals: Pt will meet 75% estimated needs Fu 2-3 days Date of Service: Apr 26, 2024 Billing Provider: MANJINDER HOOD MD Common Visit Codes: NOT BILLABLE MANJINDER HOOD MD Apr 26, 2024 15:03
--- NOTE | 2024-04-28 11:52 | ECG ---
[facility] Test Date: 2024-04-25 Test Time: 13:46:38 Pat Name: MICHELE MCKINLEY Department: Room: 0223T A Gender: M Desktop Support Technician: JORDEN : 1940 Requested By: ROVERTO MCCLURE Order Number: [id number] Reading MD: Guy Sorto Measurements Intervals [place] Rate: 47 P: 0 SC: 0 QRS: 15 QRSD: 124 T: 79 QT: 466 QTc: 412 Interpretive Statements Demand pacemaker, interpretation is based on intrinsic rhythm Underlying Atrial flutter Nonspecific intraventricular conduction delay Nonspecific ST and T wave abnormality Electronically Signed On 04-30-2024 16:25:36 PDT by Guy Sorto Please click the below link to view image of tracing.
== END 2024-04-26 18:09 | disposition home or self-care (01) | DRG 276 ==
LOC: ER 12:52 → EDBD 12:52 → OVERFLOW 16:51 → ER 16:56 → TELE-CENTR 23:48
PROVIDERS: ADMIT Hospitalist; ATTEND Hospitalist
PROC: B517YZZ Fluoroscopy of Left Subclavian Vein using Other Contrast (ICD-10-PCS; principal; 2024-04-25)
PROC: 0JH608Z Insertion of Defibrillator Generator into Chest Subcutaneous Tissue and Fascia, Open Approach (ICD-10-PCS; 2024-04-25)
PROC: 02HK3KZ Insertion of Defibrillator Lead into Right Ventricle, Percutaneous Approach (ICD-10-PCS; 2024-04-25)
DX: I49.5 Sick sinus syndrome (principal); I50.23 Acute on chronic systolic (congestive) heart failure; Q21.12 Patent foramen ovale; I48.92 Unspecified atrial flutter; I44.39 Other atrioventricular block; F41.9 Anxiety disorder, unspecified; I11.0 Hypertensive heart disease with heart failure; E78.5 Hyperlipidemia, unspecified; I25.10 Atherosclerotic heart disease of native coronary artery without angina pectoris; N40.0 Benign prostatic hyperplasia without lower urinary tract symptoms; I48.0 Paroxysmal atrial fibrillation; I08.3 Combined rheumatic disorders of mitral, aortic and tricuspid valves; F32.A Depression, unspecified; I25.5 Ischemic cardiomyopathy; Z95.1 Presence of aortocoronary bypass graft; Z79.82 Long term (current) use of aspirin; Z79.899 Other long term (current) drug therapy; Z90.49 Acquired absence of other specified parts of digestive tract; Z82.49 Family history of ischemic heart disease and other diseases of the circulatory system
CPT/HCPCS: 33249; 36012; 36415; 70450; 71045; 80048; 80053; 81001; 84484; 85025; 85610; 85730; 86850; 86900; 86901; 93005; 93306; 96374; 97110; 97116; 97163; 97530; 99152; 99291; G0378; J0690; J2250; J2405; Q9967